=== PATIENT | female | born 1955 | race Caucasian/White ===

== ENCOUNTER 2016-09-20 08:37 | Emergency (ER) | payer BC ==
[~2016-09-20] VITALS: Ht 152.4 cm; Wt 89.9 kg
[~2016-09-20 08:37] MED LIST: ANAS1TAB19 PO; BUPR150T5 PO; CALC-323 PO; GLC/500 PO; IPRASOL34 INH; LEVO100T PO; OXYC-57 PO; WARF7.5T4 PO
[2016-09-20 08:41] VITALS: TEMP 36.6; Ht 152.4 cm; Wt 89.9 kg
[2016-09-20] MEDS ORDERED: ONDANSETRON INJ 2 MG/ML 2 ML VIAL IV STA (09:02)
[2016-09-20] MEDS ORDERED: HYDROmorphone INJ 0.5 MG/0.5 ML SYR IV STA ×2 (09:02→11:46)
[2016-09-20] MEDS ORDERED: SODIUM CHLORIDE 0.9% 1000ML 1,000 ML IV STA (09:02)
[2016-09-20 09:17] LABS: BASO % 0.5 %; BASO ABS # 0.03 K/uL (0-0.2); COMPLETE YES; EOS % 3.7 %; HEMATOCRIT 44.7 % (37-47); IG% 0.2 %; LYMPH % 33.2 %; LYMPH ABS # 2.08 K/uL (1.2-3.4); MEAN CORPUSCULAR HEMOGLOBIN 32.1 pg (25-34); MEAN CORPUSCULAR HGB CONC 34.9 g/dl (32-36); MEAN PLATELET VOLUME 9.6 fL (7.4-10.4); MONO % 8.3 %; NEUT % 54.1 %; PLATELET COUNT 237 K/uL (130-400); RED BLOOD COUNT 4.86 M/uL (4.2-5.4); WHITE BLOOD COUNT 6.27 K/uL (4.8-10.8)
[2016-09-20 09:24] LABS: URINE APPEARANCE CLEAR (CLEAR); URINE BILIRUBIN NEG (NEG); URINE COLOR YELLOW; URINE NITRITE NEG (NEG); UROBILINOGEN NEG (NEG); ZZUR CULT IF INDIC CLEAN CATCH NO
[2016-09-20] MEDS ORDERED: VNTHFA/IN INH (09:24)
[2016-09-20] MEDS ORDERED: WARF5TAB7 PO (09:24)
[2016-09-20] MEDS ORDERED: MULT-845 PO (09:24)
[2016-09-20] MEDS ORDERED: EPP3/2 IM (09:24)
[2016-09-20 09:29] LABS: MANUAL MICROSCOPIC REQUIRED? NO; REVIEW REQ? NO
[2016-09-20 09:36] LABS: BUN/CREATININE RATIO 9.5 (10-20); CALCIUM 9.5 mg/dl (8.5-10.1); CREATININE 0.82 mg/dl (0.60-1.20); POTASSIUM 3.7 mmol/L (3.5-5.1)
--- NOTE | 2016-09-20 09:39 | DIAGNOSTIC IMAGING REPORT ---
CT SCAN OF THE ABDOMEN AND PELVIS WITHOUT CONTRAST CLINICAL HISTORY: Right-sided abdominal pain, nausea, vomiting. COMPARISON STUDY: No previous studies for comparison. TECHNIQUE: CT scan of the abdomen and pelvis was performed from the lung bases to the proximal femurs. Images are reviewed in the axial, sagittal, and coronal planes. IV contrast was not administered for this examination. CT DOSE: 1197.52 mGy.cm FINDINGS: Lower chest: The heart is normal in size and configuration, without pericardial effusion. The lung bases and pleural spaces are clear. Liver: There is hepatic steatosis. No focal masses are visualized this noncontrast study. Gallbladder: Unremarkable. Spleen: Normal in size and attenuation. Pancreas: Unremarkable. Adrenal glands: Unremarkable. Kidneys: No renal, ureteral, or bladder calculi are visualized. Bowel: There are no transition zones indicate bowel obstruction. There is colonic diverticulosis. No acute peridiverticular inflammatory changes are visualized. The appendix is surgically absent. Peritoneum: There is no intraperitoneal free air or abdominal ascites. There is a tiny fat-containing umbilical hernia Vasculature: The abdominal aorta is normal in course and caliber. Adenopathy: None. Pelvic viscera: The uterus is surgically absent. No abnormal adnexal masses are visualized. Skeletal structures: No destructive osseous lesions are seen. IMPRESSION: 1. No renal, ureteral, or bladder calculi identified 2. No evidence of bowel obstruction. No evidence of free air 3. Diverticulosis. No evidence of acute diverticulitis 4. Hepatic steatosis Electronically signed by: Hollis Bass M.D. 09/20/2016 9:37 AM Dictated Date/Time: 09/20/2016 9:32 AM
--- NOTE | 2016-09-20 11:16 | DIAGNOSTIC IMAGING REPORT ---
BILIARY ULTRASOUND CLINICAL HISTORY: Right upper quadrant abdominal pain and nausea COMPARISON STUDY: CT scan dated 09/20/2016 FINDINGS: The pancreas appears normal as visualized. The liver is of increased echogenicity, consistent with hepatic steatosis. The gallbladder appears sonographically normal. There is no ductal dilatation. The common bile duct measures 5 mm. There is no right-sided hydronephrosis. IMPRESSION: Increased hepatic echogenicity, consistent with hepatic steatosis. Otherwise unremarkable biliary ultrasound Electronically signed by: Hollis Bass M.D. 09/20/2016 11:14 AM Dictated Date/Time: 09/20/2016 11:13 AM
[2016-09-20] MEDS ORDERED: HYDR-5688 PO (11:50)
[2016-09-20] MEDS ORDERED: ONDA4TAB10 SL (11:50)
--- NOTE | 2016-09-20 11:53 | EMERGENCY ROOM VISIT NOTE ---
History First contact with patient: 08:49 Chief Complaint: NAUSEA Stated Complaint: NAUSEA, VOMITING, RIGHT SIDED PAIN Nursing Triage Summary: Patient c/o n/v/d and right sided back and abdominal pain, began , got worse Monday night. hx kindey stones. Denies urinary symptoms. History of Present Illness The patient is a 61 year old female who presents to the Emergency Room with complaints of nausea, vomiting and right-sided abdominal pain. The patient reports that she has had nausea off and on for the past 5 days. She has had one episode of vomiting yesterday. She states that 2 days ago, she developed right-sided abdominal pain which radiates into the back. She states it is a dull, constant pain with intermittent sharp pains. She reports that she did have one episode of diarrhea yesterday, but otherwise her bowel movements have been normal. She rates her overall discomfort a 7.5/10. She does have a history of kidney stones but does not feel that this is similar. She has a history of appendectomy and hysterectomy. She denies any urinary symptoms. She denies any chest pain, shortness breath or blood in her bowel movements. Review of Systems A complete 10-point Review of Systems was discussed with the patient, with pertinent positives and negatives listed in the History of Present Illness. All remaining Review of Systems questions can be considered negative unless otherwise specified. Past Medical/Surgical History Medical Problems: (1) Asthma Social History Smoking Status: Never Smoker Marital Status: Housing Status: lives with family Occupation Status: employed Current/Historical Medications Scheduled Albuterol Hfa (Ventolin Hfa), 2-4 PUFFS INH Q6H Anastrozole (Arimidex), 1 MG PO DAILY Bupropion Hcl (Bupropion Hcl Xl), 150 MG PO DAILY Calcium Citrate-Vitamin D (Citracal Maximum), 1 TAB PO DAILY Epinephrine (Epipen), 0.3 MG IM UD Metformin Hcl (Glucophage), 500 MG PO BID Multiple Vitamins W/ Minerals (Centrum Silver Adult 50+), 1 TAB PO DAILY Ondasetron Odt (Zofran Odt), 4 MG SL Q6H Warfarin Sod (Jantoven), 7.5 MG PO UD Warfarin Sod (Jantoven), 5 MG PO UD Scheduled PRN Hydrocodone/Acetaminophen 5MG/325MG ([place] 5MG/325MG), 1-2 TABLET PO Q4H PRN for Pain Allergies Coded Allergies: Sumatriptan (Verified Allergy, Intermediate, chest pain, 09/20/16) Adhesives (Verified Allergy, Unknown, ., 09/20/16) BEE STING (Verified Allergy, Unknown, ., 09/20/16) Cephalexin (Verified Allergy, Unknown, ., 09/20/16) Penicillin V (Verified Allergy, Unknown, ., 09/20/16) Tetanus Toxoid (Verified Allergy, Unknown, ., 09/20/16) Morphine (Verified Adverse Reaction, Intermediate, nausea, vomiting., 09/20) Physical Exam Vital Signs Date Time Temp Pulse Resp B/P Pulse Ox O2 Delivery O2 Flow Rate FiO2 09/20/16 12:12 86 18 150/97 93 09/20/16 11:18 71 16 143/103 94 Room Air 09/20/16 09:55 63 18 155/106 97 Room Air 09/20/16 08:41 36.6 72 18 146/96 97 Room Air Pain Rating (0-10): 2.0 Physical Exam VITALS: Vitals are noted on the nurse's note and reviewed by myself. Vital signs stable. GENERAL: This is a 61-year-old female, in no acute distress, nondiaphoretic, well-developed well-nourished. SKIN: Capillary reflex less than 2 seconds. HEART: Regular rate and rhythm without murmurs gallops or rubs. LUNGS: Clear to auscultation bilaterally without wheezes, rales or rhonchi. ABDOMEN: Positive bowel sounds x 4. The abdomen is soft. There is minimal tenderness to palpation of the right mid to upper abdomen. Grace sign negative. No guarding or rebound tenderness. MUSCULOSKELETAL: No CVA tenderness. NEURO: Patient was alert and oriented to person place and time. Medical Decision & Procedures ER Provider Diagnostic Interpretation: CT SCAN OF THE ABDOMEN AND PELVIS WITHOUT CONTRAST IMPRESSION: 1. No renal, ureteral, or bladder calculi identified 2. No evidence of bowel obstruction. No evidence of free air 3. Diverticulosis. No evidence of acute diverticulitis 4. Hepatic steatosis BILIARY ULTRASOUND IMPRESSION: Increased hepatic echogenicity, consistent with hepatic steatosis. Otherwise unremarkable biliary ultrasound Laboratory Results 09/20/16 09:00 Red Blood Count 4.86, Mean Corpuscular Volume 92.0, Mean Corpuscular Hemoglobin 32.1, Mean Corpuscular Hemoglobin Concent 34.9, Mean Platelet Volume 9.6, Neutrophils (%) (Auto) 54.1, Lymphocytes (%) (Auto) 33.2, Monocytes (%) (Auto) 8.3, Eosinophils (%) (Auto) 3.7, Basophils (%) (Auto) 0.5, Neutrophils # (Auto) 3.40, Lymphocytes # (Auto) 2.08, Monocytes # (Auto) 0.52, Eosinophils # (Auto) 0.23, Basophils # (Auto) 0.03 09/20/16 09:00 Test 09/20/16 08:50 09/20/16 09:00 Urine Color YELLOW Urine Appearance CLEAR (CLEAR) Urine pH 5.0 (4.5-7.5) Urine Specific [place] 1.020 (1.000-1.030) Urine Protein NEG (NEG) Urine Glucose (UA) TRACE (NEG) Urine Ketones NEG (NEG) Urine Occult Blood TRACE (NEG) Urine Nitrite NEG (NEG) Urine Bilirubin NEG (NEG) Urine Urobilinogen NEG (NEG) Urine Leukocyte Esterase NEG (NEG) Urine WBC (Auto) 1-5 /hpf (0-5) Urine RBC (Auto) 0-4 /hpf (0-4) Urine Hyaline Casts (Auto) 1-5 /lpf (0-5) Urine Epithelial Cells (Auto) 5-10 /lpf (0-5) Urine Bacteria (Auto) NEG (NEG) White Blood Count 6.27 K/uL (4.8-10.8) Red Blood Count 4.86 M/uL (4.2-5.4) Hemoglobin 15.6 g/dL (12.0-16.0) Hematocrit 44.7 % (37-47) Mean Corpuscular Volume 92.0 fL (80-100) Mean Corpuscular Hemoglobin 32.1 pg (25-34) Mean Corpuscular Hemoglobin Concent 34.9 g/dl (32-36) Platelet Count 237 K/uL (130-400) Mean Platelet Volume 9.6 fL (7.4-10.4) Neutrophils (%) (Auto) 54.1 % Lymphocytes (%) (Auto) 33.2 % Monocytes (%) (Auto) 8.3 % Eosinophils (%) (Auto) 3.7 % Basophils (%) (Auto) 0.5 % Neutrophils # (Auto) 3.40 K/uL (1.4-6.5) Lymphocytes # (Auto) 2.08 K/uL (1.2-3.4) Monocytes # (Auto) 0.52 K/uL (0.11-0.59) Eosinophils # (Auto) 0.23 K/uL (0-0.5) Basophils # (Auto) 0.03 K/uL (0-0.2) RDW Standard Deviation 43.7 fL (36.4-46.3) RDW Coefficient of Variation 13.0 % (11.5-14.5) Immature Granulocyte % (Auto) 0.2 % Immature Granulocyte # (Auto) 0.01 K/uL (0.00-0.02) Anion Gap 11.0 mmol/L (3-11) Est Creatinine Clear Calc Drug Dose 71.0 ml/min Estimated GFR () 88.9 Estimated GFR (Non- 76.7 BUN/Creatinine Ratio 9.5 (10-20) Calcium Level 9.5 mg/dl (8.5-10.1) Total Bilirubin 0.3 mg/dl (0.2-1) Aspartate Amino Transf (AST/SGOT) 25 U/L (15-37) Alanine Aminotransferase (ALT/SGPT) 43 U/L (12-78) Alkaline Phosphatase 85 U/L (45-117) Total Protein 7.8 gm/dl (6.4-8.2) Albumin 3.8 gm/dl (3.4-5.0) Globulin 4.0 gm/dl (2.5-4.0) Albumin/Globulin Ratio 1.0 (0.9-2) Lipase 196 U/L (73-393) Medications Administered Medications (Trade) Dose Ordered Sig/Bob Route Start Time Stop Time Status Last Admin Dose Admin Sodium Chloride (Nss 1000ml) 1,000 ml @ 999 mls/hr Q1H1M STAT IV 09/20/16 09:02 09/20/16 10:02 DC 09/20/16 09:08 999 MLS/HR Hydromorphone HCl (Dilaudid Inj) 0.5 mg NOW STAT IV 09/20/16 09:02 09/20/16 09:04 DC 1/17/17 09:09 0.5 MG Ondansetron HCl (Zofran Inj) 4 mg NOW STAT IV 09/20/16 09:02 09/20/16 09:04 DC 09/20/16 09:09 4 MG Hydromorphone HCl (Dilaudid Inj) 0.5 mg NOW STAT IV 09/20/16 11:46 09/20/16 11:47 DC 09/20/16 11:50 0.5 MG Medical Decision Differential diagnosis includes pancreatitis, cholecystitis, biliary colic, renal colic, pyelonephritis, gastroenteritis, colitis, among others. The patient was evaluated as above. Labs were drawn and IV access was obtained. Imaging studies were performed and read by radiology as above. The patient was medicated with 0.5 mg Dilaudid 2. The patient was reassessed multiple times during their stay in the emergency department and remained in stable condition. The patient is a 61-year-old female who presents today complaining of right- sided abdominal pain. Labs revealed no leukocytosis, anemia or concerning electrolyte abnormalities. Kidney and liver functions were within normal limits. Urinalysis was not suggestive of infection. Initially, I ordered a CT of the abdomen and pelvis without contrast to rule out a renal calculus. There was no kidney stone identified. A right upper quadrant ultrasound was then performed which did not show any evidence of acute cholecystitis. There was trace blood in the urine, which could represent a recently passed kidney stone. The patient was much more comfortable after IV pain medication. She will be given a short course of pain medication and Zofran and will follow-up with her primary care provider/GI for further evaluation. She will return sooner for any new/worsening symptoms. Based on the patient's presentation, lab results, and imaging studies, I feel the patient is stable for outpatient treatment. The patient's case was reviewed with Dr. Yepez, ED attending physician, who agreed with my assessment and treatment plan. Discharge instructions were reviewed with the patient. The patient verbalized understanding of my assessment and treatment plan and was discharged home in good condition. [place] Drug Monitoring Program Search Results: patient reviewed within database, no issues identified Impression Primary Impression: Right sided abdominal pain Departure Information Dispostion Home / Self-Care Condition GOOD Prescriptions Ondasetron Odt (ZOFRAN ODT) 4 Mg Tab 4 MG SL Q6H for Nausea, #15 TAB Prov: Lavinia Nielsen .DOUG 09/20/16 Hydrocodone/Acetaminophen 5MG/325MG ([place] 5MG/325MG) Tab 1-2 TABLET PO Q4H Y for Pain, #24 TAB For Initial Treatment Prov: Lavinia Nielsen PA-C 09/20/16 Referrals Zachary Nelson Jr., M.D. (PCP) Klever Morales M.D. Patient Instructions My [facility] Additional Instructions You have been treated in the Emergency Department your Abdominal Pain. Laboratory results and imaging studies have ruled out any emergent causes for your abdominal pain which would warrant admission or surgery. You have been prescribed [place] to be used for pain control. This is a narcotic medication. You cannot drive or consume alcohol while on this medicine. This medicine should only be used for pain that cannot be controlled with over-the- counter pain medicines. You have been prescribed Zofran to be used for any nausea or vomiting. Take as prescribed. For pain control, you can use the following [id number] medicines (if >12 yo): - Regular strength (325mg/tab) Tylenol (acetaminophen) 2 tabs every 4-6 hours as needed. Do not exceed 12 tablets in a 24 hour period. Avoid taking more than 4 grams (4000 mg) of Tylenol per day. This includes any other sources of acetaminophen you may take on a regular basis. - Regular strength (200 mg/tab) Advil (ibuprofen) 1-2 tabs every 4-6 hours as needed. Do not exceed a dose of 3200 mg per day. Drink plenty of water and stay well hydrated. As with any trip to the Emergency Department, you should follow-up with your Primary Care Provider from today's visit. You have also been provided with the information for gastro-neurology. Call them to schedule a follow-up within 1-2 weeks. Return to the emergency department if your symptoms persist despite treatment plan outlined above or if the following symptoms occur: Worsening abdominal pain , worsening vomiting, fevers, or any other new/concerning symptoms.
[2016-09-20 12:12] VITALS: BP 150/97; PULSE 86; O2SAT 93
== END 2016-09-20 12:13 | disposition home or self-care (01) ==
LOC: C.EDB 08:38 → C.EDA 12:13
DX: R10.9 Unspecified abdominal pain (principal); J45.909 Unspecified asthma, uncomplicated; K57.90 Diverticulosis of intestine, part unspecified, without perforation or abscess without bleeding; K76.0 Fatty (change of) liver, not elsewhere classified

== ENCOUNTER 2017-04-14 15:58 | Inpatient (IN) | payer BC ==
[~2017-04-14] VITALS: Ht 154.9 cm; Wt 89.2 kg
[~2017-04-14 15:58] MED LIST changes: +EPP3/2 IM; -IPRASOL34 INH; -LEVO100T PO; +MULT-845 PO; -OXYC-57 PO; +VNTHFA/IN INH; +WARF5TAB7 PO
--- NOTE | 2017-04-14 16:45 | EMERGENCY ROOM VISIT NOTE ---
History First contact with patient: 16:43 Chief Complaint: MENTAL HEALTH EVALUATION Stated Complaint: MENTAL HEALTH ADMIT History of Present Illness The patient is a 61 year old female who presents to the Emergency Room with complaints of depression >10 years. Has been on Wellbutrin for ~7 years and depression has been relatively well controlled, prescribed by PCP, Dr. 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 However, this caused GI upset and nausea, so patient resumed previous dosing. In the last month, patient has begun developing suicidal thoughts. Sometimes the thoughts do not occur, sometimes the thoughts occur multiple times a day. She claims they are her own thoughts, and denies voices in head telling her to hurt herself. She denies any hallucinations. She states feeling fatigued and hopeless. The thoughts of suicide meant to be an escape. She has thoughts of using her 's Percocet pills to OD. She has not planned date or time or triggers which would push her to complete the act. 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 He says the pistols are no longer in the house. Has not had previous suicidal thoughts. No previous mental health admissions. Review of Systems See HPI for pertinent positives and negatives. A total of ten systems were reviewed and were otherwise negative. Past Medical/Surgical History Medical Problems: (1) Asthma (2) Depression Social History Smoking Status: Never Smoker Smokeless Tobacco Use: No Alcohol Use: none Drug Use: none Marital Status: Housing Status: lives with family Occupation Status: employed Current/Historical Medications Scheduled Albuterol Hfa (Ventolin Hfa), 2-4 PUFFS INH Q6H Anastrozole (Arimidex), 1 MG PO DAILY Bupropion (Wellbutrin Sr), 100 MG PO DAILY Calcium Citrate-Vitamin D (Citracal Maximum), 1 TAB PO BID Metformin Hcl (Glucophage), 500 MG PO BID Multiple Vitamins W/ Minerals (Centrum Silver Adult 50+), 1 TAB PO DAILY Warfarin Sod (Jantoven), 7.5 MG PO UD Warfarin Sod (Jantoven), 5 MG PO UD Physical Exam Vital Signs Date Time Temp Pulse Resp B/P (MAP) Pulse Ox O2 Delivery O2 Flow Rate FiO2 04/14/17 18:20 78 18 119/88 97 Room Air 04/14/17 16:09 36.8 88 18 143/92 96 Room Air Physical Exam GENERAL: Alert, sitting in bed, no acute distress, non-toxic HEAD: NC/AT. No sinus tenderness. EYES: PERRL, EOMI, normal conjunctiva OROPHARYNX: no exudate, no erythema, lips, buccal mucosa, and tongue normal and mucous membranes are dry NECK: Supple, no adenopathy, non-tender LUNGS: Clear to auscultation. Normal chest wall mechanics, good air entry. No crepitations, crackles, or wheezes HEART: no murmurs, S1 and S2 normal ABDOMEN: abdomen soft, non-tender, normo-active bowel sounds, no masses, no rebound or guarding. BACK: Back is symmetrical on inspection, no deformities, no midline tenderness, no CVA tenderness. SKIN: Warm, pink, dry. No erythema, rashes, or bruising. EXTREMITIES: Grossly normal. No pitting edema. Calves non tender. Strength 5/5 bilaterally. NEURO: Alert, Ox3. No focal deficits. Normal sensorium, cranial nerves II-XII grossly intact, normal speech. PSYCH: Mood and affect appropriate. Medical Decision & Procedures Laboratory Results 04/14/17 17:29 Red Blood Count 4.34, Mean Corpuscular Volume 93.8, Mean Corpuscular Hemoglobin 32.0, Mean Corpuscular Hemoglobin Concent 34.2, Mean Platelet Volume 9.4, Neutrophils (%) (Auto) 55.0, Lymphocytes (%) (Auto) 35.3, Monocytes (%) (Auto) 6.7, Eosinophils (%) (Auto) 2.3, Basophils (%) (Auto) 0.4, Neutrophils # (Auto) 4.28, Lymphocytes # (Auto) 2.75, Monocytes # (Auto) 0.52, Eosinophils # (Auto) 0.18, Basophils # (Auto) 0.03 04/14/17 17:29 Test 04/14/17 16:53 04/14/17 17:29 Urine Color YELLOW Urine Appearance CLEAR (CLEAR) Urine pH 5.0 (4.5-7.5) Urine Specific [place] 1.034 (1.000-1.030) Urine Protein NEG (NEG) Urine Glucose (UA) 3+ (NEG) Urine Ketones TRACE (NEG) Urine Occult Blood NEG (NEG) Urine Nitrite NEG (NEG) Urine Bilirubin NEG (NEG) Urine Urobilinogen NEG (NEG) Urine Leukocyte Esterase NEG (NEG) Urine Opiates Screen NEG (NEG) Urine Methadone, Qualitative NEG (NEG) Urine Barbiturates NEG (NEG) Urine Phencyclidine (PCP) Level NEG (NEG) Ur Amphetamine/Methamphetamine NEG (NEG) MDMA (Ecstasy) Screen POS (NEG) Urine Benzodiazepines Screen NEG (NEG) Urine Cocaine Metabolite NEG (NEG) Urine Marijuana (THC) NEG (NEG) White Blood Count 7.78 K/uL (4.8-10.8) Red Blood Count 4.34 M/uL (4.2-5.4) Hemoglobin 13.9 g/dL (12.0-16.0) Hematocrit 40.7 % (37-47) Mean Corpuscular Volume 93.8 fL (80-100) Mean Corpuscular Hemoglobin 32.0 pg (25-34) Mean Corpuscular Hemoglobin Concent 34.2 g/dl (32-36) Platelet Count 231 K/uL (130-400) Mean Platelet Volume 9.4 fL (7.4-10.4) Neutrophils (%) (Auto) 55.0 % Lymphocytes (%) (Auto) 35.3 % Monocytes (%) (Auto) 6.7 % Eosinophils (%) (Auto) 2.3 % Basophils (%) (Auto) 0.4 % Neutrophils # (Auto) 4.28 K/uL (1.4-6.5) Lymphocytes # (Auto) 2.75 K/uL (1.2-3.4) Monocytes # (Auto) 0.52 K/uL (0.11-0.59) Eosinophils # (Auto) 0.18 K/uL (0-0.5) Basophils # (Auto) 0.03 K/uL (0-0.2) RDW Standard Deviation 44.3 fL (36.4-46.3) RDW Coefficient of Variation 12.8 % (11.5-14.5) Immature Granulocyte % (Auto) 0.3 % Immature Granulocyte # (Auto) 0.02 K/uL (0.00-0.02) Anion Gap 8.0 mmol/L (3-11) Est Creatinine Clear Calc Drug Dose 53.9 ml/min Estimated GFR () 62.3 Estimated GFR (Non- 53.8 BUN/Creatinine Ratio 12.2 (10-20) Calcium Level 9.5 mg/dl (8.5-10.1) Total Bilirubin 0.1 mg/dl (0.2-1) Direct Bilirubin < 0.1 mg/dl (0-0.2) Aspartate Amino Transf (AST/SGOT) 24 U/L (15-37) Alanine Aminotransferase (ALT/SGPT) 46 U/L (12-78) Alkaline Phosphatase 70 U/L (45-117) Total Protein 7.0 gm/dl (6.4-8.2) Albumin 3.4 gm/dl (3.4-5.0) Thyroid Stimulating Hormone (TSH) 1.750 uIu/ml (0.300-4.500) Ethyl Alcohol mg/dL < 3.0 mg/dl (0-3) Medical Decision Prior records/ancillary studies reviewed. Triage Nursing notes reviewed. Additional history obtained from patient and . The patient's history was concerning for possible suicidal ideation. Differential diagnosis: Etiologies such as mood disorder, infection, hypoglycemia, electrolyte abnormalities, cardiac sources, intracerebral event, toxicologic, neurologic, as well as others were entertained. Physical examination: The physical examination was performed as above and was completely benign. No emergent medical pathologies were noted. Diagnostic interpretation by me: No diagnostic studies were performed based upon the history and physical examination. The labs revealed normal CBC, CMP, TSH, INR is subtherapeutic. UA consistent with dehydration. Negative drug tox screen except MDMA, which is known to cross react with Wellbutrin. Confirmatory test pending. Imaging studies: nil Consultation: By the evaluation outlined above emergent etiologies such as infection, hypoglycemia, electrolyte abnormalities, cardiac sources, intracerebral event, toxicologic, neurologic,as well as others were deemed relatively unlikely. It appears the patient is dealing with a psychiatric disturbance. The patient informed about the findings as listed above. All questions were answered. A consultation was placed with mental health. The patient was evaluated by mental health in the emergency department and they felt admission was warranted. The patient was admitted to [address] [place] [address] for further treatment. Impression Primary Impression: Suicidal ideation Additional Impression: Depression Departure Information Referrals Zachary Nelson Jr., M.D. (PCP) Patient Instructions My [facility] Resident Tracking Resident Involvement: Resident Care Provided Care Provided: Adult ED Problem Qualifiers
[2017-04-14] MEDS ORDERED: BUPR100T8 PO (17:47)
[2017-04-14 17:48] LABS: BENZODIAZEPINE, URINE NEG (NEG); COCAINE,URINE NEG (NEG); PHENCYCLIDINE, URINE NEG (NEG)
[2017-04-14 17:54] LABS: BASO % 0.4 %; BASO ABS # 0.03 K/uL (0-0.2); COMPLETE YES; EOS % 2.3 %; HEMATOCRIT 40.7 % (37-47); IG% 0.3 %; LYMPH % 35.3 %; LYMPH ABS # 2.75 K/uL (1.2-3.4); MEAN CELL VOLUME 93.8 fL (80-100); MEAN CORPUSCULAR HGB CONC 34.2 g/dl (32-36); MEAN PLATELET VOLUME 9.4 fL (7.4-10.4); MONO % 6.7 %; PLATELET COUNT 231 K/uL (130-400); RED BLOOD COUNT 4.34 M/uL (4.2-5.4); WHITE BLOOD COUNT 7.78 K/uL (4.8-10.8)
[2017-04-14 18:02] LABS: URINE APPEARANCE CLEAR (CLEAR); URINE BILIRUBIN NEG (NEG); URINE COLOR YELLOW; URINE NITRITE NEG (NEG); URINE SPECIFIC GRAVITY 1.034 (1.000-1.030); UROBILINOGEN NEG (NEG)
[2017-04-14 18:03] LABS: MANUAL MICROSCOPIC REQUIRED? NO; REVIEW REQ? NO
[2017-04-14 18:11] LABS: ALT/SGPT 46 U/L (12-78); BLOOD UREA NITROGEN 13 mg/dl (7-18); BUN/CREATININE RATIO 12.2 (10-20); CALCIUM 9.5 mg/dl (8.5-10.1); CARBON DIOXIDE 26 mmol/L (21-32); CHLORIDE 107 mmol/L (98-107); GLUCOSE 208 mg/dl (70-99); POTASSIUM 3.7 mmol/L (3.5-5.1); SODIUM 141 mmol/L (136-145)
[2017-04-14 18:20] VITALS: O2SAT 97
[2017-04-14 18:21] LABS: ALKALINE PHOSPHATASE 70 U/L (45-117); AST/SGOT 24 U/L (15-37)
[2017-04-14] MEDS ORDERED: BISMUTH SUBSALICYLATE PER ML OMNICELL CHARGE PO PRN (18:45)
[2017-04-14] MEDS ORDERED: ALBUTEROL HFA 8 GM INHALER INH SCH (18:45)
[2017-04-14] MEDS ORDERED: SODIUM CHLORIDE 0.65% NA SOLN 45 ML (OCEAN) PRN (18:45)
[2017-04-14] MEDS ORDERED: MAGNESIUM HYDROXIDE SUSP 30 ML UDC PO PRN (18:45)
[2017-04-14] MEDS ORDERED: hydrOXYzine HCL 25 MG TAB PO PRN ×2 (18:45)
[2017-04-14] MEDS ORDERED: ALUMINUM/MAGNESIUM SUSP 30 ML UDC PO PRN (18:45)
--- NOTE | 2017-04-14 19:48 | EMERGENCY ROOM VISIT NOTE ---
History Report prepared by Elina: Gregg Marion Under the Supervision of: Dr. Bernardino Damon D.O. First contact with patient: 16:41 Chief Complaint: MENTAL HEALTH EVALUATION Stated Complaint: MENTAL HEALTH ADMIT History of Present Illness The patient is a 61 year old female who presents to the Emergency Room for a mental health evaluation. She has had a history of Depression for the past 10 years. She has been on Wellbutrin for that time. Beginning 1 month ago, the patient's depression has been worsening. 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 She has been having thoughts of suicide. She had plans to take her 's Percocet pills. She denies any hallucinations or hearing voices. She feels hopeless and has a lack of self-worth, but she would like to get better. She denies any previous attempts of suicide and no prior mental health admissions. She has been having headaches, but nothing out of the ordinary. She denies any other abnormal symptoms. Source of History: patient Onset: 1 month ago Position: other (Global) Symptom Intensity: moderate Quality: other (Depression) Timing: worsening Associated Symptoms: + headache Note: She denies any hallucinations or hearing voices. She has a suicidal ideation. Review of Systems See HPI for pertinent positives & negatives. A total of 10 systems reviewed and were otherwise negative. Past Medical & Surgical Medical Problems: (1) Asthma (2) Depression Family History Omitted secondary to age. Social History Smoking Status: Never Smoker Smokeless Tobacco Use: No Drug Use: none Marital Status: Housing Status: lives with family Occupation Status: employed Current/Historical Medications Scheduled Albuterol Hfa (Ventolin Hfa), 2-4 PUFFS INH Q6H Anastrozole (Arimidex), 1 MG PO DAILY Bupropion (Wellbutrin Sr), 100 MG PO DAILY Calcium Citrate-Vitamin D (Citracal Maximum), 1 TAB PO BID Metformin Hcl (Glucophage), 500 MG PO BID Multiple Vitamins W/ Minerals (Centrum Silver Adult 50+), 1 TAB PO DAILY Warfarin Sod (Jantoven), 7.5 MG PO UD Warfarin Sod (Jantoven), 5 MG PO UD Allergies Coded Allergies: Sumatriptan (Verified Allergy, Intermediate, chest pain, 04/14/17) Adhesives (Verified Allergy, Unknown, ., 04/14/17) BEE STING (Verified Allergy, Unknown, ., 04/14/17) Cephalexin (Verified Allergy, Unknown, ., 04/14/17) Penicillin V (Verified Allergy, Unknown, ., 04/14/17) Tetanus Toxoid (Verified Allergy, Unknown, ., 04/14/17) Morphine (Verified Adverse Reaction, Intermediate, nausea, vomiting., 04/14) Physical Exam Vital Signs Date Time Temp Pulse Resp B/P (MAP) Pulse Ox O2 Delivery O2 Flow Rate FiO2 04/14/17 18:20 78 18 119/88 97 Room Air 04/14/17 16:09 36.8 88 18 143/92 96 Room Air Physical Exam GENERAL: alert, disheveled appearing, well nourished, no distress, non-toxic, lying on her left side. EYE EXAM: normal conjunctiva, PERRL and EOM's intact OROPHARYNX: no exudate, no erythema, lips, buccal mucosa, and tongue normal and mucous membranes are moist NECK: supple, no nuchal rigidity, no adenopathy, non-tender LUNGS: Clear to auscultation. Normal chest wall mechanics HEART: no murmurs, S1 normal and S2 normal ABDOMEN: abdomen soft, non-tender, normo-active bowel sounds, no masses, no rebound or guarding. BACK: Back is symmetrical on inspection and there is no deformity, no midline tenderness, no CVA tenderness. SKIN: no rashes and no bruising UPPER EXTREMITIES: upper extremities are grossly normal. LOWER EXTREMITIES: No pitting edema. NEURO EXAM: Normal sensorium, cranial nerves II-XII intact, normal speech, no weakness of arms, no weakness of legs. No drift. Sensation intact. PSYCH EXAM: Denies auditory or visual hallucinations. Admits to suicidal thoughts with plans to kill herself. Denies homicidal ideation. Admits lack of self worth. Flat affect. Medical Decision & Procedures Laboratory Results 04/14/17 17:29 Red Blood Count 4.34, Mean Corpuscular Volume 93.8, Mean Corpuscular Hemoglobin 32.0, Mean Corpuscular Hemoglobin Concent 34.2, Mean Platelet Volume 9.4, Neutrophils (%) (Auto) 55.0, Lymphocytes (%) (Auto) 35.3, Monocytes (%) (Auto) 6.7, Eosinophils (%) (Auto) 2.3, Basophils (%) (Auto) 0.4, Neutrophils # (Auto) 4.28, Lymphocytes # (Auto) 2.75, Monocytes # (Auto) 0.52, Eosinophils # (Auto) 0.18, Basophils # (Auto) 0.03 04/14/17 17:29 Test 04/14/17 16:53 04/14/17 17:29 Urine Color YELLOW Urine Appearance CLEAR (CLEAR) Urine pH 5.0 (4.5-7.5) Urine Specific Hobson 1.034 (1.000-1.030) Urine Protein NEG (NEG) Urine Glucose (UA) 3+ (NEG) Urine Ketones TRACE (NEG) Urine Occult Blood NEG (NEG) Urine Nitrite NEG (NEG) Urine Bilirubin NEG (NEG) Urine Urobilinogen NEG (NEG) Urine Leukocyte Esterase NEG (NEG) Urine Opiates Screen NEG (NEG) Urine Methadone, Qualitative NEG (NEG) Urine Barbiturates NEG (NEG) Urine Phencyclidine (PCP) Level NEG (NEG) Ur Amphetamine/Methamphetamine NEG (NEG) MDMA (Ecstasy) Screen POS (NEG) Urine Benzodiazepines Screen NEG (NEG) Urine Cocaine Metabolite NEG (NEG) Urine Marijuana (THC) NEG (NEG) White Blood Count 7.78 K/uL (4.8-10.8) Red Blood Count 4.34 M/uL (4.2-5.4) Hemoglobin 13.9 g/dL (12.0-16.0) Hematocrit 40.7 % (37-47) Mean Corpuscular Volume 93.8 fL (80-100) Mean Corpuscular Hemoglobin 32.0 pg (25-34) Mean Corpuscular Hemoglobin Concent 34.2 g/dl (32-36) Platelet Count 231 K/uL (130-400) Mean Platelet Volume 9.4 fL (7.4-10.4) Neutrophils (%) (Auto) 55.0 % Lymphocytes (%) (Auto) 35.3 % Monocytes (%) (Auto) 6.7 % Eosinophils (%) (Auto) 2.3 % Basophils (%) (Auto) 0.4 % Neutrophils # (Auto) 4.28 K/uL (1.4-6.5) Lymphocytes # (Auto) 2.75 K/uL (1.2-3.4) Monocytes # (Auto) 0.52 K/uL (0.11-0.59) Eosinophils # (Auto) 0.18 K/uL (0-0.5) Basophils # (Auto) 0.03 K/uL (0-0.2) RDW Standard Deviation 44.3 fL (36.4-46.3) RDW Coefficient of Variation 12.8 % (11.5-14.5) Immature Granulocyte % (Auto) 0.3 % Immature Granulocyte # (Auto) 0.02 K/uL (0.00-0.02) Anion Gap 8.0 mmol/L (3-11) Est Creatinine Clear Calc Drug Dose 53.9 ml/min Estimated GFR () 62.3 Estimated GFR (Non- 53.8 BUN/Creatinine Ratio 12.2 (10-20) Calcium Level 9.5 mg/dl (8.5-10.1) Total Bilirubin 0.1 mg/dl (0.2-1) Direct Bilirubin < 0.1 mg/dl (0-0.2) Aspartate Amino Transf (AST/SGOT) 24 U/L (15-37) Alanine Aminotransferase (ALT/SGPT) 46 U/L (12-78) Alkaline Phosphatase 70 U/L (45-117) Total Protein 7.0 gm/dl (6.4-8.2) Albumin 3.4 gm/dl (3.4-5.0) Thyroid Stimulating Hormone (TSH) 1.750 uIu/ml (0.300-4.500) Ethyl Alcohol mg/dL < 3.0 mg/dl (0-3) Laboratory results per my review. ED Course ED COURSE: Vital signs were reviewed and showed hypertension. The patients medical record was reviewed The above diagnostic studies were performed and reviewed. ED treatments and interventions as stated above. 1641: The patient was evaluated in room A6. A complete history and physical examination was performed. 1800: The patient was evaluated by [address] [place] [address] and was accepted to their facility for further treatment as an inpatient. 1815: Upon reevaluation, the patient is resting. I discussed my findings with the patient and she understands and agrees with the treatment plan. Based on the patients age, coexisting illnesses, exam and lab findings the decision to treat as an inpatient was made. The patient remained stable while under my care. She will be transferred to [address] [place] [address]. Medical Decision Differential diagnosis: Etiologies such as mood disorder, infection, hypoglycemia, electrolyte abnormalities, cardiac sources, intracerebral event, toxicologic, neurologic, as well as others were entertained. Patient is a 59-year-old female who presents the ER with depression and thoughts of suicide. She has a plan of overdosing. This has been worsening over the past month. Patient combines of a mild headache. She complete neurologically intact. No other medical complaints. Labs were unremarkable with mild hyperglycemia consistent with her diabetes. Patient was deemed medically stable and evaluated by [facility] Patient was admitted to [facility] for suicidal thoughts with a plan to overdose. Medication Reconcilliation Current Medication List: was personally reviewed by me Blood Pressure Screening Patient's blood pressure: Elevated blood pressure Blood pressure disposition: Elevated BP felt to be situational Impression Primary Impression: Mood disorder Additional Impression: Suicidal ideation Scribe Attestation The scribe's documentation has been prepared under my direction and personally reviewed by me in its entirety. I confirm that the note above accurately reflects all work, treatment, procedures, and medical decision making performed by me. Departure Information Dispostion Mental Health Acute Care Referrals Zachary Nelson Jr., M.D. (PCP) Patient Instructions [facility] Problem Qualifiers
[2017-04-14 19:55] VITALS: BP 143/89; PULSE 88; TEMP 36.8; BMI 37.2
[2017-04-14 21:18] LABS: INR 1.2 (0.9-1.1); PROTHROMBIN TIME (PATIENT) 12.6 SECONDS (9.0-12.0)
[2017-04-14] MEDS ORDERED: NURSING VERBAL MED ORDER ONE (21:30)
[2017-04-14] MEDS ORDERED: ALBUTEROL HFA 8 GM INHALER INH PRN (21:45)
[2017-04-14] MEDS: CALCIUM 600MG + VIT D 400 IU TAB PO SCH (22:10)
[2017-04-14] MEDS: WARFARIN SOD 7.5 MG TAB PO SCH (22:10)
[2017-04-14] MEDS: METFORMIN HCL 500 MG TAB PO SCH (22:11)
[2017-04-15 06:57] VITALS: Ht 154.9 cm; Wt 89.2 kg
[2017-04-15 06:58] VITALS: BP_SYST 139; BP_SYST 147; BP_DIAS 90; BP_DIAS 97; PULSE 63; PULSE 76; TEMP 36.7
--- NOTE | 2017-04-15 08:56 | Psychiatric History & Physical ---
History Date of Service Apr 15, 2017. Identifying Data Donna Bryan is a 61-year-old female from [facility], who was admitted voluntarily due to severe depression and suicidality. Information is gathered from the patient and considered to be reliable. Chief Complaint "I been really depressed lately.". History of Present Illness Flaquita Bryan is a 61-year-old woman who is not currently in any psychiatric outpatient care, who reports that she has been increasingly depressed for the last 2 months. She first experienced depression about 10 years ago when her uncle and she was unable to be with him at the time of his . She did have therapy at that time which she felt was helpful. She has also been on Wellbutrin from her primary care provider for years. He did recently try to increase the dose which she could not tolerate due to nausea and stomach cramps. She has been under stress at home, as her has been having increasing medical problems including having symptomatic PVCs with shortness of breath and significant rectal pain. 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 She has not worked overnight caregiver in years and she has been doing so for the last 9 months, and finding it a difficult transition. Last Monday, she had a performance evaluation and was surprised to find that they were not satisfied with her performance. She was shocked by this as she feels that she doesn't good job, works hard and is conscientious. She did not feel as if the director's of nursing who gave her her review was professional nor did she have specific examples to support the poor review. Since that time, the patient has had increasing suicidal thoughts. She has had thoughts to overdose on her 's Percocet. Although she owns a gun, she denies she would ever use a gun on herself. Today the patient is quite tearful describing that she feels she is "letting everybody down" by being in the hospital. She sees her most acute stress as that of her poor work evaluation and would like to challenge that in some way. Her sleep has been "a lot" and feels that she is always tired. Her appetite is "too good" as she stress eats, however her weight has been fluctuant. Her anxiety is "a lot" and usually triggered by work. She feels that she has episodes of increased anxiety but denies that these rise to the level of a panic attack. She denies ever having had auditory or visual hallucinations. Her energy is quite low and she no longer enjoys things that she previously did such as going to camp or walking. She is isolating socially, not wanting to be around people. She denies any symptoms of OCD. She denies any discrete episodes of euphoric mood, sleeplessness or pleasure seeking behaviors that would be congruent with a bipolar disorder. She denies any self-injurious acts. Past Psychiatric History Current OP Treatment: no current treatment Prior OP Treatment: therapist Prior Psych Hospitalizations: none Access to a Gun: Yes Past Medication Trials Prozac-didn't work Past Medical/Surgical History History of Concussion/Seizure: No (1) history of a blood clot on chronic anticoagulation (2) History of breast cancer (3) Migraines (4) Diabetes mellitus type 2, noninsulin dependent (5) Hypothyroidism (6) Asthma Allergies Allergies: Coded Allergies: Sumatriptan (Verified Allergy, Intermediate, chest pain, 04/14/17) Adhesives (Verified Allergy, Unknown, ., 04/14/17) BEE STING (Verified Allergy, Unknown, ., 04/14/17) Cephalexin (Verified Allergy, Unknown, ., 04/14/17) Penicillin V (Verified Allergy, Unknown, ., 04/14/17) Tetanus Toxoid (Verified Allergy, Unknown, ., 04/14/17) Morphine (Verified Adverse Reaction, Intermediate, nausea, vomiting., 04/14) Home Medications Scheduled Albuterol Hfa (Ventolin Hfa), 2-4 PUFFS INH Q6H Anastrozole (Arimidex), 1 MG PO DAILY Bupropion (Wellbutrin Sr), 100 MG PO DAILY Calcium Citrate-Vitamin D (Citracal Maximum), 1 TAB PO BID Metformin Hcl (Glucophage), 500 MG PO BID Multiple Vitamins W/ Minerals (Centrum Silver Adult 50+), 1 TAB PO DAILY Warfarin Sod (Jantoven), 7.5 MG PO UD Warfarin Sod (Jantoven), 5 MG PO UD Family History FH: cardiovascular disease FH: diabetes mellitus History of Suicide: No History of Substance Abuse: No Psychiatric History: No Alcohol Use Alcohol Use In Past 12 Months: No AUDIT Total Score: 0 Smoking Use Smoking Status: Never Smoker Substance History Denies Personal History Lives in: [place] Education: graduated college (got a degree in nursing from [employer] in 1999) Work History: Employed full-time at [employer] Relationship History: (for 42 years, good relationship) Children: 2 adult sons Spiritual Affiliation: Mosque Legal History: none Psychological Trauma History: Denies Hx Traumatic Event Review of Systems Constitutional: malaise Eyes: reports: blurred vision (with migraines) ENT: denies: no symptoms reported, see HPI, ear pain, ear discharge, loss of hearing, tinnitus, nasal pain, nasal congestion, rhinorrhea, epistaxis, sore throat, stidor, throat swelling, mouth pain, mouth swelling, dental pain, gum swelling, other Cardiovascular: denies: no symptoms reported, see HPI, chest pain, chest tightness, chest pressure, diaphoresis, palpitations, syncope, other Respiratory: denies: no symptoms reported, see HPI, cough, orthopnea, short of breath, stridor, wheezing, sputum production, cyanosis, MEADE, PND, other Gastrointestinal: denies no symptoms reported, denies see HPI, denies abdominal pain, denies constipation, denies diarrhea, denies nausea, denies vomiting, denies other Genitourinary - Female: denies: no symptoms, see HPI, rash, amenorrhea, dysmenorrhea, menorrhagia, metrorrhagia, , vaginal bleeding, vaginal itching, vaginal discharge, vulvadynia, other Musculoskeletal: denies no symptoms reported, denies see HPI, denies back pain , denies gout, denies joint pain, denies joint swelling, denies muscle pain, denies muscle stiffness, denies neck pain, denies other Integumentary: denies no symptoms reported, denies see HPI, denies change in color, denies change in hair/nails, denies dryness, denies lesions, denies lumps , denies rash, denies other Neurologic: denies: no symptoms, see HPI, headache, numbness, paresthesias, pre -existing deficit, seizure, tingling, tremors, general weakness, tics, focal weakness, vertigo, lethargy, memory loss, dizziness, other Endocrine: denies: no symptoms, as stated in HPI, cold intolerance, heat intolerance, hair changes, goiter, polydipsia, polyuria, skin changes, other Hematologic / Lymphatic: denies: no symptoms, as stated in HPI, abnormal clotting, adenopathy, anemia, easy bleeding, easy bruising, gums bleeding, petechiae, other Examination Physical Examination A physical exam performed by Dr. Damon in the emergency department last evening has been reviewed and accepted as medical clearance for our unit Vital Signs Vital Signs Past 12 Hours Date Time Temp Pulse Resp B/P (MAP) Pulse Ox O2 Delivery O2 Flow Rate FiO2 04/15/17 06:58 36.7 63 16 139/90 76 147/97 Laboratory Results Last 24 Hours Test 04/14/17 16:53 04/14/17 17:29 04/14/17 20:51 Urine Color YELLOW Urine Appearance CLEAR Urine pH 5.0 Urine Specific Marshall 1.034 Urine Protein NEG Urine Glucose (UA) 3+ Urine Ketones TRACE Urine Occult Blood NEG Urine Nitrite NEG Urine Bilirubin NEG Urine Urobilinogen NEG Urine Leukocyte Esterase NEG Urine Opiates Screen NEG Urine Methadone, Qualitative NEG Urine Barbiturates NEG Urine Phencyclidine (PCP) Level NEG Ur Amphetamine/Methamphetamine NEG MDMA (Ecstasy) Screen POS Urine Benzodiazepines Screen NEG Urine Cocaine Metabolite NEG Urine Marijuana (THC) NEG White Blood Count 7.78 K/uL Red Blood Count 4.34 M/uL Hemoglobin 13.9 g/dL Hematocrit 40.7 % Mean Corpuscular Volume 93.8 fL Mean Corpuscular Hemoglobin 32.0 pg Mean Corpuscular Hemoglobin Concent 34.2 g/dl Platelet Count 231 K/uL Mean Platelet Volume 9.4 fL Neutrophils (%) (Auto) 55.0 % Lymphocytes (%) (Auto) 35.3 % Monocytes (%) (Auto) 6.7 % Eosinophils (%) (Auto) 2.3 % Basophils (%) (Auto) 0.4 % Neutrophils # (Auto) 4.28 K/uL Lymphocytes # (Auto) 2.75 K/uL Monocytes # (Auto) 0.52 K/uL Eosinophils # (Auto) 0.18 K/uL Basophils # (Auto) 0.03 K/uL RDW Standard Deviation 44.3 fL RDW Coefficient of Variation 12.8 % Immature Granulocyte % (Auto) 0.3 % Immature Granulocyte # (Auto) 0.02 K/uL Sodium Level 141 mmol/L Potassium Level 3.7 mmol/L Chloride Level 107 mmol/L Carbon Dioxide Level 26 mmol/L Anion Gap 8.0 mmol/L Blood Urea Nitrogen 13 mg/dl Creatinine 1.10 mg/dl Est Creatinine Clear Calc Drug Dose 53.9 ml/min Estimated GFR () 62.3 Estimated GFR (Non- 53.8 BUN/Creatinine Ratio 12.2 Random Glucose 208 mg/dl Calcium Level 9.5 mg/dl Total Bilirubin 0.1 mg/dl Direct Bilirubin < 0.1 mg/dl Aspartate Amino Transf (AST/SGOT) 24 U/L Alanine Aminotransferase (ALT/SGPT) 46 U/L Alkaline Phosphatase 70 U/L Total Protein 7.0 gm/dl Albumin 3.4 gm/dl Thyroid Stimulating Hormone (TSH) 1.750 uIu/ml Ethyl Alcohol mg/dL < 3.0 mg/dl Prothrombin Time 12.6 SECONDS Prothromb Time International Ratio 1.2 Mental Examination During interview pt is: alert and oriented, cooperative Appearance: appropriately dressed, appropriately groomed Eye contact is: good Motor behavior is: steady gait & station, no abnormal motor movements Speech: normal in rate, rhythm & volume Affect: tearful Mood is: depressed Thought process: goal directed Thought content: reality based without delusions Suicidal thought are: present, Plan: present, Intent: denied Homicidal thoughts are: denied Hallucinations: denies auditory, denies visual Cognition: memory grossly intact, attention grossly intact, language grossly intact Intelligence estimated to be: average Insight: impaired Judgement: impaired Impression / Recommendations Impression 61-year-old woman who presents with severe depression and suicidality in the setting of stress with her 's medical conditions and at her work. Her PCP has tried her on higher doses of Wellbutrin, which she cannot tolerate, and so we will add Lexapro 5-10 mg daily. Risks, benefits, alternatives, reviewed and accepted. 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 She will need psychiatric aftercare and will benefit from having a therapist. She had a random glucose of 208 and so we will get a fasting glucose in the a.m. We will monitor her PT INRs daily as she has been running low lately and has a goal range of 2-3. We will schedule a family meeting with her . At this time however she requires inpatient mental health treatment due to the severity of her condition and the risk for self-harm if discharged. Inventory Assets Strengths: Love of family, employed full-time, conscientious Needs: To learn healthy coping strategies Risk Factors Assessment : Yes /single/: No Higher / Fall in social status: No Access to guns: Yes Health problems: Yes Mental Health Diagnoses: Yes Substance use disorders: No Previous attempt: No Previous psychiatric stay: No Hopelessness: No Smoker: No Protective Factors Assessment Hoahaoism beliefs: Yes : Yes Responsible for young children: No Employed: Yes Stable relationships: Yes Supportive family: Yes Recommendations (1) Major depressive disorder, recurrent severe without psychotic features 04/15 -Start Lexapro 5 mg today increasing to 10 mg tomorrow - Continue Wellbutrin SR 100 mg daily - Family meeting with - Encourage participation in group and individual counseling - Every 15 minute checks for safety - Patient will need psychiatric aftercare - Patient seems willing to have a 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 she says that she recently had a hemoglobin A1c but cannot remember the value - Diabetic diet - Encourage exercise - Continue home dose of metformin (4) Hypothyroidism 04/15 -TSH within normal limits. Continue home dose of levothyroxine (5) Asthma 04/15 - Continue albuterol inhaler when necessary - (6) history of a blood clot on chronic anticoagulation 04/15 - Continue home dosing of Coumadin - Daily PT INRs with a goal range of 2-[address] Felipa arreguin CPT Code Initial Hospital Care: [id number]
[2017-04-15] MEDS ORDERED: LEVOTHYROXINE 150 MCG TAB PO ONE (09:45)
[2017-04-15] MEDS ORDERED: ESCITALOPRAM OXALATE 10 MG TAB PO ONE (09:45)
[2017-04-15] MEDS: ANASTROZOLE 1 MG TAB PO SCH (09:46)
[2017-04-15] MEDS: CALCIUM 600MG + VIT D 400 IU TAB PO SCH ×2 (09:47→22:04)
[2017-04-15] MEDS: METFORMIN HCL 500 MG TAB PO SCH ×2 (09:47→17:46)
[2017-04-15] MEDS: BuPROPion SR 100 MG TABCR PO SCH (09:47)
[2017-04-15] MEDS: CEROVITE ADV FORMULA TAB PO SCH (09:47)
[2017-04-15] MEDS ORDERED: LEVO150T PO (10:02)
--- NOTE | 2017-04-15 10:06 | Psych Management Progress Note ---
Psychiatry Miscellaneous Date of Service: Apr 15, 2017. I personally participated in the case review and medical recommendations outlined in the psychiatric H&P documented by AMARIS Chamorro. Patient seen, MS assessed. Hopeful for support of copatients. Described reading as a pleasurable activity. Cooperative with care and treatment plan as outlined by AMARIS. Encouraged participation in therapeutic activities.
[2017-04-15] MEDS: WARFARIN SOD 5 MG TAB PO SCH (16:05)
[2017-04-15 16:15] VITALS: BP 149/101; PULSE 74
[2017-04-15] MEDS: ACETAMINOPHEN 325 MG TAB PO PRN (17:49)
[2017-04-15 17:53] VITALS: BP 137/90; PULSE 87
[2017-04-16 07:04] VITALS: BP_SYST 123; BP_SYST 129; BP_DIAS 85; BP_DIAS 86; PULSE 73; PULSE 77; TEMP 36.6
[2017-04-16] MEDS: LEVOTHYROXINE 150 MCG TAB PO SCH (08:01)
[2017-04-16] MEDS: ANASTROZOLE 1 MG TAB PO SCH (09:10)
[2017-04-16] MEDS: BuPROPion SR 100 MG TABCR PO SCH (09:11)
[2017-04-16] MEDS: ESCITALOPRAM OXALATE 10 MG TAB PO SCH (09:11)
[2017-04-16] MEDS: CALCIUM 600MG + VIT D 400 IU TAB PO SCH ×2 (09:11→22:37)
[2017-04-16] MEDS: CEROVITE ADV FORMULA TAB PO SCH (09:11)
[2017-04-16] MEDS: METFORMIN HCL 500 MG TAB PO SCH ×2 (09:11→17:39)
--- NOTE | 2017-04-16 10:43 | Psychiatric Progress Notes ---
Progress Note Date of Service Apr 16, 2017. Interval History 61-year-old woman who presents with severe depression and suicidality in the setting of stress with her 's medical conditions and at her work. Her PCP has tried her on higher doses of Wellbutrin, which she cannot tolerate, and so we will add Lexapro 5-10 mg daily. Risks, benefits, alternatives, reviewed and accepted. 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 She will need psychiatric aftercare and will benefit from having a therapist. She had a random glucose of 208 and so we will get a fasting glucose in the a.m. We will monitor her PT INRs daily as she has been running low lately and has a goal range of 2-3. We will schedule a family meeting with her . At this time however she requires inpatient mental health treatment due to the severity of her condition and the risk for self-harm if discharged. Chief Complaint "I think I feel a little better.". Subjective Patient was seen & assessed interval progress reviewed with Treatment Team. The patient says that she had a good individual session with staff last evening and is now feeling better about things. She is still concerned about her work situation and is afraid that she will not be ready to return to work when discharged. She is backing off on wanting to have a phone meeting with her boss , fearing it would make things worse. She had good visits with her and her son last evening. She feels well supported by them. She had an episode of dizziness yesterday and had an elevated BP reading, and is worried about that. With her improved mood today she is also denying SI and feeling more hopeful. She reports good sleep and appetite, and is getting along well with her peers. She continues to have poor focus and recall, worrying that she will get dementia. 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.) Review of Systems Constitutional: No fever, No chills, No sweats, No weight loss, No weakness, No fatigue, No problem reported ENT: No hearing loss, No unusual epistaxis, No nasal symptoms, No sore throat, No tinnitus, No dental problems, No trouble swallowing, No problem reported Respiratory: No cough, No sputum, No wheezing, No shortness of breath, No dyspnea on exertion, No dyspnea at rest, No hemoptysis, No problem reported Cardiovascular: + problem reported (one episode of dizziness) Abdomen: No pain, No nausea, No vomiting, No diarrhea, No constipation, No GI bleeding, No problem reported Musculoskeletal: No joint pain, No muscle pain, No swelling, No calf pain, No problem reported Neurologic: No memory loss, No paralysis, No weakness, No numbness/tingling, No vertigo, No balance problems, No problem reported Psychiatric: + depression symptoms, + anxiety Sleep Information Total Hours of Sleep: 7.25 Meal Information Percent of Breakfast Consumed: 100 Percent of Lunch Consumed: 100 Percent of Dinner Consumed: 100 Mental Status Exam During interview pt is: alert and oriented, cooperative Appearance: appropriately dressed, appropriately groomed Eye contact is: good Motor behavior is: steady gait & station, no abnormal motor movements Speech: normal in rate, rhythm & volume Affect: tearful Mood is: depressed Thought process: goal directed Thought content: reality based without delusions Suicidal thought are: present, Plan: present, Intent: denied Homicidal thoughts are: denied Hallucinations: denies auditory, denies visual Cognition: memory grossly intact, attention grossly intact, language grossly intact Intelligence estimated to be: average Insight: impaired Judgement: impaired Impression Adjusting well to the structure and support of the milieu, utilizing individual as well as group therapy. Tolerating the start of Lexapro, will continue 10 mg. daily. FBS today 140, reviewed with patient. She is aware of what she needs to do to improve her sugars. She continues to consider her meeting options, which will be discussed with social service tomorrow. 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 she says that she recently had a hemoglobin A1c but cannot remember the value - Diabetic diet - Encourage exercise - Continue home dose of metformin (4) Hypothyroidism 04/15 -TSH within normal limits. Continue home dose of levothyroxine (5) Asthma 04/15 - Continue albuterol inhaler when necessary - (6) history of a blood clot on chronic anticoagulation 04/15 - Continue home dosing of Coumadin - Daily PT INRs with a goal range of 2-3 Has been reviewed with Dr. Felipa arreguin Discharge / Aftercare Planning Therapist: Name: Floridalma [employer] Strengths: Love of family, employed full-time, conscientious Needs: To learn healthy coping strategies Risk Factors Assessment : Yes /single/: No Higher / Fall in social status: No Health problems: Yes Mental Health Diagnoses: Yes Substance use disorders: No Previous attempt: No Previous psychiatric stay: No Hopelessness: No Smoker: No Protective Factors Assessment Samaritan beliefs: Yes : Yes Responsible for young children: No Employed: Yes Stable relationships: Yes Supportive family: Yes Data Vital Signs Last 24 Hrs: Date Time Temp Pulse Resp B/P (MAP) Pulse Ox O2 Delivery O2 Flow Rate FiO2 04/16/17 07:04 36.6 73 16 129/86 77 123/85 04/15/17 17:53 87 16 137/90 04/15/17 16:15 74 18 149/101 Meds Administered Last 24 Hrs: Meds Administered (Past 24Hrs) Medications (Trade) Dose Ordered Sig/Bob Route Start Time Stop Time Status Last Admin Dose Admin Acetaminophen (Tylenol Tab) 650 mg Q4H PRN PO 04/14/17 18:45 05/14/17 18:44 04/15/17 17:49 650 MG Anastrozole (Arimidex Tab) 1 mg DAILY PO 04/15/17 09:00 05/15/17 08:59 04/16/17 09:10 1 MG Bupropion HCl (Wellbutrin-Sr Tab) 100 mg DAILY PO 04/15/17 09:00 05/15/17 08:59 04/16/17 09:11 100 MG Metformin HCl (Glucophage Tab) 500 mg BIDM PO 04/15/17 09:00 05/15/17 08:59 04/16/17 09:11 500 MG Multivitamins/ Minerals (Multivitamin W/ Minerals Tab) 1 tab DAILY PO 04/15/17 09:00 05/15/17 08:59 04/16/17 09:11 1 TAB Warfarin Sodium (Coumadin Tab) 5 mg SuTuThSa@1600 PO 04/15/17 16:00 05/15/17 15:59 04/15/17 16:05 5 MG Warfarin Sodium (Coumadin Tab) 7.5 mg MoWeFr@1600 PO 04/14/17 18:45 05/14/17 18:44 04/14/17 22:10 7.5 MG Calcium/Vitamin D (Caltrate Plus Tab) 1 tab BID PO 04/14/17 21:00 05/14/17 20:59 04/16/17 09:11 1 TAB Levothyroxine Sodium (Synthroid Tab) 150 mcg DAILYBB PO 04/16/17 08:00 05/16/17 07:59 04/16/17 08:01 150 MCG Levothyroxine Sodium (Synthroid Tab) 150 mcg 0945 ONCE PO 04/15/17 09:45 04/15/17 09:46 DC 04/15/17 09:47 150 MCG Escitalopram Oxalate (Lexapro Tab) 10 mg QAM PO 04/16/17 09:00 05/16/17 08:59 04/16/17 09:11 10 MG Escitalopram Oxalate (Lexapro Tab) 5 mg 0945 ONCE PO 04/15/17 09:45 04/15/17 09:46 DC 04/15/17 09:48 5 MG Lab Results Last 24 Hrs: Last 24 Hours Test 04/16/17 07:22 Fasting Glucose 140 mg/dl
[2017-04-16 11:13] LABS: INR 1.4 (0.9-1.1); PROTHROMBIN TIME (PATIENT) 15.4 SECONDS (9.0-12.0)
[2017-04-16 12:56] VITALS: BP 145/93; PULSE 82
[2017-04-16] MEDS: WARFARIN SOD 5 MG TAB PO SCH (16:02)
[2017-04-16 20:48] VITALS: BP 155/99; PULSE 90
[2017-04-17 06:51] VITALS: BP_SYST 127; BP_SYST 130; BP_DIAS 84; BP_DIAS 88; PULSE 72; PULSE 74; TEMP 36.8
[2017-04-17 07:53] LABS: INR 1.5 (0.9-1.1); PROTHROMBIN TIME (PATIENT) 16.1 SECONDS (9.0-12.0)
--- NOTE | 2017-04-17 08:28 | Psychiatric Progress Notes ---
Progress Note Date of Service Apr 17, 2017. Interval History 61-year-old woman who presents with severe depression and suicidality in the setting of stress with her 's medical conditions and at her work. Her PCP has tried her on higher doses of Wellbutrin, which she cannot tolerate, and so we will add Lexapro 5-10 mg daily. Risks, benefits, alternatives, reviewed and accepted. 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 She will need psychiatric aftercare and will benefit from having a therapist. She had a random glucose of 208 and so we will get a fasting glucose in the a.m. We will monitor her PT INRs daily as she has been running low lately and has a goal range of 2-3. We will schedule a family meeting with her . At this time however she requires inpatient mental health treatment due to the severity of her condition and the risk for self-harm if discharged. Chief Complaint "Good, better". Subjective Patient was seen & assessed interval progress reviewed with treatment team. 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 She is going to groups, and SI has improved. She states that her mood has improved," I don't feel as depressed." She feels safe in the hospital, and denies suicidal thoughts, but states that she was feeling so overwhelmed that she thought suicide was the only answer, "there was no way out. " She continues to have a lot of anxiety, which is triggered by thinking about going back to work stressors at her job. She feels overwhelmed in thinking about returning to work. She says she talked to her and decided she does not want to meeting with her boss, as she does not trust her boss to keep her mental health issues confidential. 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 She remains upset about her negative work evaluation, and states she missed the follow-up meeting where they were going to discuss specific examples of her problem behavior. She does want a meeting with her , and states that he will secure the guns. She reports headaches, dizziness, and "my brain feels foggy," which has been occurring in the evenings for the past 2 days, and wonders if it is from Lexapro. She is sleeping and eating well, stating that she tends to eat and sleep more when she is stressed. She feels that the groups and patient handbook have been very helpful. Sleep Information Total Hours of Sleep: 7.75 Meal Information Percent of Breakfast Consumed: 100 Percent of Lunch Consumed: 80 Percent of Dinner Consumed: 100 Mental Status Exam During interview pt is: alert and oriented, cooperative Appearance: appropriately dressed, appropriately groomed Eye contact is: good Motor behavior is: steady gait & station, no abnormal motor movements Speech: normal in rate, rhythm & volume Affect: depressed (but reactive and appropriate), anxious Mood is: anxious, other ("better") Thought process: goal directed Thought content: reality based without delusions Suicidal thought are: denied Homicidal thoughts are: denied Hallucinations: denies auditory, denies visual Cognition: memory grossly intact, attention grossly intact, language grossly intact Intelligence estimated to be: average Insight: impaired Judgement: impaired Impression Adjusting well to the structure and support of the milieu, utilizing individual as well as group therapy, and working in her patient handbook. Tolerating the start of Lexapro, but with 2 days of headaches, so for now will hold off on further titration and continue 10 mg. daily. FBS 140, reviewed with patient. She is aware of what she needs to do to improve her sugars. She has decided not to have a meeting with her boss, but would like a meeting with her . She will need a plan to secure guns at home, and referrals for outpatient care as well. 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 Continue participation in unit groups and programming. Work on discharge safety plan. (2) Migraines 04/15 -The patient cannot take triptan but does utilize Excedrin Migraine with success (3) Diabetes mellitus type 2, noninsulin dependent 04/15 - FBS in the a.m. she says that she recently had a hemoglobin A1c but cannot remember the value - Diabetic diet - Encourage exercise - Continue home dose of metformin (4) Hypothyroidism 04/15 -TSH within normal limits. Continue home dose of levothyroxine (5) Asthma 04/15 - Continue albuterol inhaler when necessary - (6) history of a blood clot on chronic anticoagulation 04/15 - Continue home dosing of Coumadin - Daily PT INRs with a goal range of 2-3 Has been reviewed with Dr. Felipa arreguin Discharge / Aftercare Planning Therapist: Name: Floridalma Visit Code E&M Code: 26094 [employer] Assets Strengths: Love of family, employed full-time, conscientious Needs: To learn healthy coping strategies Risk Factors Assessment : Yes /single/: No Higher / Fall in social status: No Health problems: Yes Mental Health Diagnoses: Yes Substance use disorders: No Previous attempt: No Previous psychiatric stay: No Hopelessness: No Smoker: No Protective Factors Assessment Muslim beliefs: Yes : Yes Responsible for young children: No Employed: Yes Stable relationships: Yes Supportive family: Yes Data Vital Signs Last 24 Hrs: Date Time Temp Pulse Resp B/P (MAP) Pulse Ox O2 Delivery O2 Flow Rate FiO2 04/17/17 06:51 36.8 74 16 130/84 72 127/88 04/16/17 20:48 90 155/99 04/16/17 12:56 82 145/93 Meds Administered Last 24 Hrs: Meds Administered (Past 24Hrs) Medications (Trade) Dose Ordered Sig/Bob Route Start Time Stop Time Status Last Admin Dose Admin Anastrozole (Arimidex Tab) 1 mg DAILY PO 04/15/17 09:00 05/15/17 08:59 04/16/17 09:10 1 MG Bupropion HCl (Wellbutrin-Sr Tab) 100 mg DAILY PO 04/15/17 09:00 05/15/17 08:59 04/16/17 09:11 100 MG Metformin HCl (Glucophage Tab) 500 mg BIDM PO 04/15/17 09:00 05/15/17 08:59 04/16/17 17:39 500 MG Multivitamins/ Minerals (Multivitamin W/ Minerals Tab) 1 tab DAILY PO 04/15/17 09:00 05/15/17 08:59 04/16/17 09:11 1 TAB Warfarin Sodium (Coumadin Tab) 5 mg SuTuThSa@1600 PO 04/15/17 16:00 05/15/17 15:59 04/16/17 16:02 5 MG Levothyroxine Sodium (Synthroid Tab) 150 mcg DAILYBB PO 04/16/17 08:00 05/16/17 07:59 04/16/17 08:01 150 MCG Levothyroxine Sodium (Synthroid Tab) 150 mcg 0945 ONCE PO 04/15/17 09:45 04/15/17 09:46 DC 04/15/17 09:47 150 MCG Escitalopram Oxalate (Lexapro Tab) 10 mg QAM PO 04/16/17 09:00 05/16/17 08:59 04/16/17 09:11 10 MG Escitalopram Oxalate (Lexapro Tab) 5 mg 0945 ONCE PO 04/15/17 09:45 04/15/17 09:46 DC 04/15/17 09:48 5 MG Lab Results Last 24 Hrs: Last 24 Hours Test 04/16/17 10:39 04/17/17 07:18 Prothrombin Time 15.4 SECONDS 16.1 SECONDS Prothromb Time International Ratio 1.4 1.5
[2017-04-17] MEDS: LEVOTHYROXINE 150 MCG TAB PO SCH (09:05)
[2017-04-17] MEDS: ANASTROZOLE 1 MG TAB PO SCH (09:05)
[2017-04-17] MEDS: ESCITALOPRAM OXALATE 10 MG TAB PO SCH (09:06)
[2017-04-17] MEDS: CEROVITE ADV FORMULA TAB PO SCH (09:06)
[2017-04-17] MEDS: METFORMIN HCL 500 MG TAB PO SCH ×2 (09:06→17:45)
[2017-04-17] MEDS: CALCIUM 600MG + VIT D 400 IU TAB PO SCH ×2 (09:06→21:17)
[2017-04-17] MEDS: BuPROPion SR 100 MG TABCR PO SCH (09:06)
[2017-04-17] MEDS: ACETAMINOPHEN 325 MG TAB PO PRN (15:04)
[2017-04-17 15:14] VITALS: BP 143/90; PULSE 79
[2017-04-17] MEDS: WARFARIN SOD 7.5 MG TAB PO SCH (16:01)
[2017-04-18 06:54] VITALS: BP_SYST 130; BP_SYST 143; BP_DIAS 90; BP_DIAS 91; PULSE 67; PULSE 77; TEMP 36.5
[2017-04-18 07:37] LABS: INR 1.5 (0.9-1.1); PROTHROMBIN TIME (PATIENT) 16.7 SECONDS (9.0-12.0)
[2017-04-18] MEDS: LEVOTHYROXINE 150 MCG TAB PO SCH (07:51)
[2017-04-18] MEDS: BuPROPion SR 100 MG TABCR PO SCH (08:29)
[2017-04-18] MEDS: ESCITALOPRAM OXALATE 10 MG TAB PO SCH (08:29)
[2017-04-18] MEDS: METFORMIN HCL 500 MG TAB PO SCH ×2 (08:29→17:12)
[2017-04-18] MEDS: ANASTROZOLE 1 MG TAB PO SCH (08:29)
[2017-04-18] MEDS: CALCIUM 600MG + VIT D 400 IU TAB PO SCH ×2 (08:29→21:14)
[2017-04-18] MEDS: CEROVITE ADV FORMULA TAB PO SCH (08:29)
--- NOTE | 2017-04-18 12:24 | Psychiatric Progress Notes ---
Progress Note Date of Service Apr 18, 2017. Interval History 61-year-old woman who presents with severe depression and suicidality in the setting of stress with her 's medical conditions and at her work. Her PCP has tried her on higher doses of Wellbutrin, which she cannot tolerate, and so we will add Lexapro 5-10 mg daily. Risks, benefits, alternatives, reviewed and accepted. 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 She will need psychiatric aftercare and will benefit from having a therapist. She had a random glucose of 208 and so we will get a fasting glucose in the a.m. We will monitor her PT INRs daily as she has been running low lately and has a goal range of 2-3. We will schedule a family meeting with her . At this time however she requires inpatient mental health treatment due to the severity of her condition and the risk for self-harm if discharged. Chief Complaint "Feeling better, but I think I need a little more time". Subjective Patient was seen & assessed interval progress reviewed with Nursing. Staff report she is going to groups and participating. She reported a headache and dizziness yesterday afternoon, which improved with Tylenol. She has a meeting with her this afternoon. She continues to express anxiety about returning to work, saying she doesn't know who she can trust there, and worries that coworkers are talking badly about her behind her back. She is sleeping and eating well, and reports improved mood. She denies SI, and is hoping she will be ready for discharge to home tomorrow. Sleep Information Total Hours of Sleep: 8.00 Meal Information Percent of Breakfast Consumed: 100 Percent of Lunch Consumed: 85 Percent of Dinner Consumed: 100 Mental Status Exam During interview pt is: alert and oriented, cooperative Appearance: appropriately dressed, appropriately groomed Eye contact is: good Motor behavior is: steady gait & station, no abnormal motor movements Speech: normal in rate, rhythm & volume Affect: anxious Mood is: anxious, other ("better") Thought process: goal directed Thought content: reality based without delusions Suicidal thought are: denied Homicidal thoughts are: denied Hallucinations: denies auditory, denies visual Cognition: memory grossly intact, attention grossly intact, language grossly intact Intelligence estimated to be: average Insight: fair Judgement: fair Impression Adjusting well to the structure and support of the milieu, utilizing individual as well as group therapy, and working in her patient handbook. Tolerating the start of Lexapro, and although she is reporting daily mild headaches and dizziness, this is unlikely to be related to escitalopram, but for now will hold off on further titration and continue 10 mg. daily. FBS 140, reviewed with patient. She is aware of what she needs to do to improve her sugars. She has decided not to have a meeting with her boss, but will have a meeting with her today. She will need a plan to secure guns at home, and referrals for outpatient care as well. 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 Continue participation in unit groups and programming. Work on discharge safety plan. 04/18 - Referred for aftercare, family meeting with , and continue escitalopram as above. (2) Migraines 04/15 -The patient cannot take triptan but does utilize Excedrin Migraine with success (3) Diabetes mellitus type 2, noninsulin dependent 04/15 - FBS in the a.m. she says that she recently had a hemoglobin A1c but cannot remember the value - Diabetic diet - Encourage exercise - Continue home dose of metformin (4) Hypothyroidism 04/15 -TSH within normal limits. Continue home dose of levothyroxine (5) Asthma 04/15 - Continue albuterol inhaler when necessary - (6) history of a blood clot on chronic anticoagulation 04/15 - Continue home dosing of Coumadin - Daily PT INRs with a goal range of 2-3 Has been reviewed with Dr. Felipa arreguin Discharge / Aftercare Planning Therapist: Name: Floridalma Visit Code E&M Code: 27110 Inventory Assets Strengths: Love of family, employed full-time, conscientious Needs: To learn healthy coping strategies Risk Factors Assessment : Yes /single/: No Higher / Fall in social status: No Health problems: Yes Mental Health Diagnoses: Yes Substance use disorders: No Previous attempt: No Previous psychiatric stay: No Hopelessness: No Smoker: No Protective Factors Assessment Caodaism beliefs: Yes : Yes Responsible for young children: No Employed: Yes Stable relationships: Yes Supportive family: Yes Data Vital Signs Last 24 Hrs: Date Time Temp Pulse Resp B/P (MAP) Pulse Ox O2 Delivery O2 Flow Rate FiO2 04/18/17 06:54 36.5 67 16 143/91 77 130/90 04/17/17 15:14 79 143/90 Lab Results Last 24 Hrs: Last 24 Hours Test 04/17/17 16:05 04/17/17 17:16 04/18/17 07:15 Bedside Glucose 179 mg/dl 118 mg/dl Prothrombin Time 16.7 SECONDS Prothromb Time International Ratio 1.5
[2017-04-18] MEDS: WARFARIN SOD 5 MG TAB PO SCH (16:08)
[2017-04-19 06:58] VITALS: BP_SYST 125; BP_DIAS 79; BP_DIAS 87; PULSE 73; PULSE 76; TEMP 36.9
[2017-04-19 07:36] LABS: INR 1.6 (0.9-1.1); PROTHROMBIN TIME (PATIENT) 17.7 SECONDS (9.0-12.0)
[2017-04-19] MEDS: LEVOTHYROXINE 150 MCG TAB PO SCH (07:56)
[2017-04-19] MEDS ORDERED: LXP10 PO (08:12)
--- NOTE | 2017-04-19 09:11 | Discharge Instructions ---
Discharge Information Report Includes Report will include the: Discharge Instructions & Summary Admission Admission Date / Time: Apr 14, 2017 at 18:47 Reason for Admission: Major Depressive Disorder Discharge Discharge Diagnosis / Problem: Depression Condition at Discharge: Good Discharge Goals Goal(s): Improve function, Improve disease control, Learn about illness, Therapeutic intervention Activity Recommendations Activity Limitations: per Instructions/Follow-up section . Instructions / Follow-Up Instructions / Follow-Up . SPECIAL CARE INSTRUCTIONS: 1. Follow through with your scheduled aftercare appointments. If unable to keep an appointment, please call to reschedule. 2. Take your medication only as prescribed. Medication should not be changed or stopped without the approval of your doctor. In the event of worsening symptoms or concerns about side effects, contact your doctor immediately. 3. Utilize new healthy coping skills, anger management skills, and stress management skills learned during your hospitalization. Journal feelings and process them with a support person. Identify stressors or situations that may result in relapse, deterioration or inappropriate behaviors and develop a plan to deal with those issues. 4. If your coping skills are ineffective and you are in crisis, contact your outpatient providers for direction. If unable to reach your providers, please call the CAN HELP LINE AT or go to the closest Emergency Room. 5. Avoid alcohol and un-prescribed drugs. 6. You have been provided with the Mental Health Advance Directives Pamphlet for your review. AFTERCARE APPOINTMENTS: * Please call your insurance company prior to your scheduled appointment to confirm your aftercare providers are covered. Take your insurance information to your appointments. . Discharge / Aftercare Planning Primary Care Physician: Name: Dr. Nelson Psychiatrist: Name: Dr. Trujillo, [facility],[address] [facility], [place] [address] Appointment Notes: please take photo ID, co-pay, and credit card to keep on file to appt Therapist: Name Of Therapist: Jamilah Graham Date of Appointment: Apr 21, 2017 Time of Appointment: 10:30 Appointment Comments: please arrive at 10:30 for paperwork will be seen at 11am . Follow-Up Care Plan for Follow-Up Care: See above. Current Hospital Diet Patient's current hospital diet: Regular Diet Discharge Diet Recommended Diet: Regular Diet Procedures Procedures Performed: No Pending Studies Pending Studies at Discharge: No Medical Emergencies . Who to Call and When: Medical Emergencies: For questions or emergencies related to your hospital stay, please contact the Inpatient Behavioral Health Unit at [phone]. A senior revenue accountant is on-call 27/03 for the Behavioral Health Unit for emergencies At any time you feel your situation is an emergency, you may also call 911 immediately. . Non-Emergent Contact Non-Emergency issues call your: Primary Care Provider, Psychiatrist, Therapist Past History Medical & Surgical History: (1) Migraines (2) History of breast cancer (3) history of a blood clot on chronic anticoagulation (4) Diabetes mellitus type 2, noninsulin dependent (5) Hypothyroidism (6) Asthma Advance Directives Existing Advance Directive: No Do You Have an Existing Mental: No Existing Living Will: No Existing Power of Bird Raiser: No Advance Directives Info Given: To Pt/S.O. Advance Directives Reason: Declines as Mental Health Visit. Discharge Summary Admission HPI Per the Admitting provider: Flaquita Bryan is a 61-year-old woman who is not currently in any psychiatric outpatient care, who reports that she has been increasingly depressed for the last 2 months. She first experienced depression about 10 years ago when her uncle and she was unable to be with him at the time of his . She did have therapy at that time which she felt was helpful. She has also been on Wellbutrin from her primary care provider for years. He did recently try to increase the dose which she could not tolerate due to nausea and stomach cramps. She has been under stress at home, as her has been having increasing medical problems including having symptomatic PVCs with shortness of breath and significant rectal pain. 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 She has not worked proof machine operator supervisor in years and she has been doing so for the last 9 months, and finding it a difficult transition. Last Monday, she had a performance evaluation and was surprised to find that they were not satisfied with her performance. She was shocked by this as she feels that she doesn't good job, works hard and is conscientious. She did not feel as if the director's of nursing who gave her her review was professional nor did she have specific examples to support the poor review. Since that time, the patient has had increasing suicidal thoughts. She has had thoughts to overdose on her 's Percocet. Although she owns a gun, she denies she would ever use a gun on herself. Today the patient is quite tearful describing that she feels she is "letting everybody down" by being in the hospital. She sees her most acute stress as that of her poor work evaluation and would like to challenge that in some way. Her sleep has been "a lot" and feels that she is always tired. Her appetite is "too good" as she stress eats, however her weight has been fluctuant. Her anxiety is "a lot" and usually triggered by work. She feels that she has episodes of increased anxiety but denies that these rise to the level of a panic attack. She denies ever having had auditory or visual hallucinations. Her energy is quite low and she no longer enjoys things that she previously did such as going to camp or walking. She is isolating socially, not wanting to be around people. She denies any symptoms of OCD. She denies any discrete episodes of euphoric mood, sleeplessness or pleasure seeking behaviors that would be congruent with a bipolar disorder. She denies any self-injurious acts. Admission Exam Per the Admitting provider: Please see admission H&P. Consultations None. Hospital Course (1) Major depressive disorder, recurrent severe without psychotic features 04/15 -Start Lexapro 5 mg today increasing to 10 mg tomorrow - Continue Wellbutrin SR 100 mg daily - Family meeting with - Encourage participation in group and individual counseling - Every 15 minute checks for safety - Patient will need psychiatric aftercare - Patient seems willing to have a phone conference with her mitigation supervisor to discuss her poor work review - Assist the patient to learn and utilize healthy coping strategies 04/16 - Continue current meds - Will need to schedule family meeting 04/17 - Continue escitalopram 10 mg daily and monitor headaches. Continue participation in unit groups and programming. Work on discharge safety plan. 04/18 - Referred for aftercare, family meeting with , and continue escitalopram as above. 04/19 - Mood improved, consistently denying suicidal thoughts, and patient requesting discharge. Has been comfortable with discharge plan, and his confirmed that guns are secured and she will not have access to them. Outpatient follow-up arranged. (2) Migraines 04/15 -The patient cannot take triptan but does utilize Excedrin Migraine with success (3) Diabetes mellitus type 2, noninsulin dependent 04/15 - FBS in the a.m. she says that she recently had a hemoglobin A1c but cannot remember the value - Diabetic diet - Encourage exercise - Continue home dose of metformin (4) Hypothyroidism 04/15 -TSH within normal limits. Continue home dose of levothyroxine (5) Asthma 04/15 - Continue albuterol inhaler when necessary - (6) history of a blood clot on chronic anticoagulation 04/15 - Continue home dosing of Coumadin - Daily PT INRs with a goal range of 2-3 Risk Factors Assessment : Yes /single/: No Higher / Fall in social status: No Access to guns: No ( confirmed that guns are secured) Health problems: Yes Mental Health Diagnoses: Yes Substance use disorders: No Previous attempt: No Family history of suicide: No Previous psychiatric stay: No Hopelessness: No Smoker: No Protective Factors Assessment Buddhist beliefs: Yes : Yes Responsible for young children: No Employed: Yes Stable relationships: Yes Supportive family: Yes Good rapport with provider: Yes (patient will see this physician in my outpatient practice for follow-up) Absence of risk factors above: Yes (risk factors mitigated by admission to the inpatient unit, adjusting medications to target depression, involving her in groups and therapy on the unit, a family meeting with her , ensuring that guns are secured, working on healthy coping skills and her discharge safety plan, and referring her for outpatient psychiatric follow-up and therapy. The patient has demonstrated improved mood, is consistently denying suicidal thoughts, is doing ADLs independently, and is tolerating medications. She is requesting discharge, and as she is no longer at acute risk of harm to herself, can be managed as an outpatient at this time. She is not at increased risk for harm to others.) Day of Discharge Assessment Hospital Course: On admission, the patient was started on escitalopram to target recurrent depression, and the dose was increased to 10 mg daily. She was concerned that the daily headaches and dizziness she was experiencing in the afternoons might be due to the medication, and although it was felt this was unlikely, further dose titration was postponed due to these concerns. She demonstrated good participation in groups and therapy, and worked on her patient handbook, and mood improved throughout the course of her stay. She was able to process her stressors, primarily work issues. She was offered a family meeting with her boss in order to discuss her recent negative work review, but ultimately declined this, fearing that her boss would not keep her mental health issues confidential. She did have a family meeting with her , who was supportive, and confirmed that guns in the home are secured in the patient would not have access to them. She also had good support from her son, who visited her in the hospital. Her suicidal suicidal thoughts resolved while in the hospital, and she demonstrated good sleep and appetite. She was referred for outpatient services. Day of Discharge Assessment: Patient reports improved mood and anxiety, stating that she is feeling positive and hopeful about the future. She denies thoughts of harming herself or anyone else, and feels ready to go home. She is planning to return to work on Monday, and feels able to use the coping skills she's worked on here to manage her anxiety. She is able to review her safety plan, and reports good support from her and son. She is looking forward to returning home today, and denies any safety concerns with discharge. Well nourished, well developed WF appearing stated age. Casually dressed and adequately groomed. Calm and cooperative. Seated in NAD, with fair eye contact and no abnormal movements. Speech is normal rate, volume, and tone. Mood is "good, much better," and affect is stable and congruent. Thoughts are linear, logical and goal directed. The patient denied suicidal and homicidal ideation and was able to safety plan. No paranoia, delusions, or hallucinations , and did not appear to be responding to internal stimuli. Cognition was grossly intact. Alert and oriented to person, place and time. Intelligence is consistent with level of education. Insight and and judgment are good. Laboratory Test 04/14/17 16:53 04/14/17 17:29 04/16/17 07:22 04/18/17 07:15 Urine Color YELLOW Urine Appearance CLEAR Urine pH 5.0 Urine Specific [place] 1.034 Urine Protein NEG Urine Glucose (UA) 3+ Urine Ketones TRACE Urine Occult Blood NEG Urine Nitrite NEG Urine Bilirubin NEG Urine Urobilinogen NEG Urine Leukocyte Esterase NEG Urine Opiates Screen NEG Urine Methadone, Qualitative NEG Urine Barbiturates NEG Urine Phencyclidine (PCP) Level NEG Ur Amphetamine/Methamphetamine NEG Urine MDE-amphetamine (MDEA) Pending Ur Methylenedioxyamphetamine (MDA) Pending MDMA (Ecstasy) Screen POS Methylenedioxymethamphetamine (MDMA Pending Urine Benzodiazepines Screen NEG Urine Cocaine Metabolite NEG Urine Marijuana (THC) NEG White Blood Count 7.78 Red Blood Count 4.34 Hemoglobin 13.9 Hematocrit 40.7 Mean Corpuscular Volume 93.8 Mean Corpuscular Hemoglobin 32.0 Mean Corpuscular Hemoglobin Concent 34.2 Platelet Count 231 Mean Platelet Volume 9.4 Neutrophils (%) (Auto) 55.0 Lymphocytes (%) (Auto) 35.3 Monocytes (%) (Auto) 6.7 Eosinophils (%) (Auto) 2.3 Basophils (%) (Auto) 0.4 Neutrophils # (Auto) 4.28 Lymphocytes # (Auto) 2.75 Monocytes # (Auto) 0.52 Eosinophils # (Auto) 0.18 Basophils # (Auto) 0.03 RDW Standard Deviation 44.3 RDW Coefficient of Variation 12.8 Immature Granulocyte % (Auto) 0.3 Immature Granulocyte # (Auto) 0.02 Sodium Level 141 Potassium Level 3.7 Chloride Level 107 Carbon Dioxide Level 26 Anion Gap 8.0 Blood Urea Nitrogen 13 Creatinine 1.10 Est Creatinine Clear Calc Drug Dose 53.9 Estimated GFR () 62.3 Estimated GFR (Non- 53.8 BUN/Creatinine Ratio 12.2 Random Glucose 208 Calcium Level 9.5 Total Bilirubin 0.1 Direct Bilirubin < 0.1 Aspartate Amino Transferase (AST) 24 Alanine Aminotransferase (ALT) 46 Alkaline Phosphatase 70 Total Protein 7.0 Albumin 3.4 Thyroid Stimulating Hormone (TSH) 1.750 Ethyl Alcohol mg/dL < 3.0 Fasting Glucose 140 Prothrombin Time 16.7 Prothrombin Time INR 1.5 Test 04/18/17 07:49 04/19/17 06:49 04/19/17 07:50 POC Glucose 135 138 Prothrombin Time 17.7 Prothrombin Time INR 1.6 Total Time Total Time Spent (min): Greater than 30 minutes Total Time Included: examination of the patient, discharge planning, medication reconciliation Tobacco Cessation at Discharge Smoking Status: Never Smoker FDA approved Prescription: non-smoker
[2017-04-19] MEDS: CALCIUM 600MG + VIT D 400 IU TAB PO SCH (09:25)
[2017-04-19] MEDS: ANASTROZOLE 1 MG TAB PO SCH (09:25)
[2017-04-19] MEDS: CEROVITE ADV FORMULA TAB PO SCH (09:26)
[2017-04-19] MEDS: BuPROPion SR 100 MG TABCR PO SCH (09:26)
[2017-04-19] MEDS: ESCITALOPRAM OXALATE 10 MG TAB PO SCH (09:26)
[2017-04-19] MEDS: METFORMIN HCL 500 MG TAB PO SCH (09:26)
== END 2017-04-19 10:45 | disposition home or self-care (01) | DRG 885 ==
LOC: C.EDB 15:58 → C.MHU 18:47 → ENRESERV 19:11
PROVIDERS: ADMIT Psychiatry & Neurology Child & Adolescent Psychiatry; ATTEND Psychiatry & Neurology Child & Adolescent Psychiatry
DX: F33.2 Major depressive disorder, recurrent severe without psychotic features (principal); R45.851 Suicidal ideations; E03.9 Hypothyroidism, unspecified; E11.9 Type 2 diabetes mellitus without complications; J45.909 Unspecified asthma, uncomplicated; Z79.01 Long term (current) use of anticoagulants; Z79.84 Long term (current) use of oral hypoglycemic drugs; Z79.899 Other long term (current) drug therapy; Z86.718 Personal history of other venous thrombosis and embolism

== ENCOUNTER 2017-11-05 01:42 | Emergency (ER) | payer BC, OTHER ==
[~2017-11-05] VITALS: Ht 152.4 cm; Wt 92.5 kg
[~2017-11-05 01:42] MED LIST changes: +BUPR100T8 PO; -BUPR150T5 PO; -EPP3/2 IM; +LEVO150T PO; +LXP10 PO
[2017-11-05 01:52] VITALS: TEMP 36.4; Ht 152.4 cm; Wt 92.5 kg
[2017-11-05 02:31] LABS: BASO % 0.5 %; BASO ABS # 0.04 K/uL (0-0.2); EOS % 2.6 %; EOS ABS # 0.19 K/uL (0-0.5); HEMATOCRIT 39.4 % (37-47); HEMOGLOBIN 13.7 g/dL (12.0-16.0); IG# 0.02 K/uL (0.00-0.02); LYMPH % 35.4 %; LYMPH ABS # 2.61 K/uL (1.2-3.4); MEAN CELL VOLUME 92.1 fL (80-100); MEAN CORPUSCULAR HGB CONC 34.8 g/dl (32-36); MEAN PLATELET VOLUME 9.2 fL (7.4-10.4); MONO % 10.6 %; MONO ABS # 0.78 K/uL (0.11-0.59); NEUT % 50.6 %; NEUT ABS # 3.74 K/uL (1.4-6.5); PLATELET COUNT 205 K/uL (130-400); RED CELL DISTRIBUTION WIDTH CV 13.4 % (11.5-14.5); RED CELL DISTRIBUTION WIDTH SD 44.8 fL (36.4-46.3); WHITE BLOOD COUNT 7.38 K/uL (4.8-10.8)
[2017-11-05 02:44] LABS: INR 1.9 (0.9-1.1)
[2017-11-05 03:00] LABS: ALBUMIN 3.6 gm/dl (3.4-5.0); ALT/SGPT 36 U/L (12-78); AST/SGOT 20 U/L (15-37); BLOOD UREA NITROGEN 14 mg/dl (7-18); CALCIUM 8.8 mg/dl (8.5-10.1); CARBON DIOXIDE 25 mmol/L (21-32); CREATININE 0.83 mg/dl (0.60-1.20); GLUCOSE 201 mg/dl (70-99); LIPASE 334 U/L (73-393); POTASSIUM 3.7 mmol/L (3.5-5.1); SODIUM 137 mmol/L (136-145)
[2017-11-05 03:11] LABS: ALKALINE PHOSPHATASE 81 U/L (45-117); TOTAL PROTEIN 7.3 gm/dl (6.4-8.2)
[2017-11-05] MEDS ORDERED: BUPR-79 PO (03:18)
[2017-11-05] MEDS ORDERED: LEVO150T9 PO (03:21)
[2017-11-05] MEDS ORDERED: CITA10TA4 PO (03:25)
[2017-11-05] MEDS ORDERED: ASPI-390 PO (03:26)
[2017-11-05] MEDS ORDERED: CLIN300C2 PO (03:28)
[2017-11-05] MEDS ORDERED: DEXAMETHASONE **PF** INJ 10 MG/ML VIAL IV ONE (03:45)
--- NOTE | 2017-11-05 04:46 | EMERGENCY ROOM VISIT NOTE ---
History First contact with patient: 02:01 Chief Complaint: CARDIAC ASSESSMENT Stated Complaint: ELEVATED BP & SUGAR,PAIN DOWN LFT ARM,DIZZY,SOB Nursing Triage Summary: Pt reports high blood pressure recently with some chest discomfort and pain in her arms. Pt also reports increased blood sugar as well. History of Present Illness The patient is a 62 year old female who presents to the Emergency Room with complaints of neck pain that radiates down her left arm throughout the day described as aching, ranging in severity 6 out of 10. Nothing makes it better or worse. Her blood sugar has been running a little high. She has been feeling fatigued. No prior heart disease. Patient is on Coumadin for history of PE. She is 6 years cancer free. Patient denies chest pain, dyspnea, fever, chills, back pain, leg pain or swelling, urinary symptoms, diaphoresis, vomiting , abdominal pain, localized weakness. No injury to the area. Patient's INR earlier today was 1.7. She had this checked with her Coumadin doctor. They adjusted her medicine today. Review of Systems An 10 system review of systems was completed with positives and pertinent negatives listed in the HPI. Past Medical/Surgical History Medical Problems: (1) Asthma (2) Depression (3) history of a blood clot on chronic anticoagulation (4) History of breast cancer (5) Major depressive disorder, recurrent severe without psychotic features (6) Migraines Family History FH: cardiovascular disease FH: diabetes mellitus Social History Smoking Status: Never Smoker Alcohol Use: none Drug Use: none Marital Status: Housing Status: lives with family Occupation Status: employed Current/Historical Medications Scheduled Anastrozole (Arimidex), 1 MG PO DAILY Bupropion (Wellbutrin Sr), 150 MG PO DAILY Calcium Citrate-Vitamin D (Citracal Maximum), 2 TAB PO BID Citalopram Hydrobromide (Citalopram Hydrobromide), 10 MG PO DAILY Clindamycin Hcl (Cleocin), 300 MG PO TID Levothyroxine Sodium (Levothyroxine Sodium), 150 MCG PO DAILY Metformin Hcl (Glucophage), 500 MG PO BID Multiple Vitamins W/ Minerals (Centrum Silver Adult 50+), 1 TAB PO DAILY Warfarin Sod (Jantoven), 7.5 MG PO UD Warfarin Sod (Jantoven), 5 MG PO UD Scheduled PRN Albuterol Hfa (Ventolin Hfa), 2-4 PUFFS INH Q6H PRN for SOB/Wheezing Vcxbihw-Chhndkxngrxgf-Bbfjinkn (Excedrin Migraine), 1 TAB PO BID PRN for Migraine Physical Exam Vital Signs Date Time Temp Pulse Resp B/P (MAP) Pulse Ox O2 Delivery O2 Flow Rate FiO2 11/05/17 04:18 82 20 153/99 97 Room Air 11/05/17 03:30 67 20 142/106 95 Room Air 11/05/17 02:27 Room Air 11/05/17 02:05 79 11/05/17 01:52 36.4 80 20 142/93 95 Room Air Physical Exam VITALS: Vitals are noted on the nurse's note and reviewed by myself. Vital signs hypertensive. GENERAL: Pleasant female anxious appearing, in no acute distress, nondiaphoretic , well-developed well-nourished. SKIN: The skin was without rashes, erythema, edema, or bruising. There is no tenting of the skin. Capillary reflex less than 2 seconds. HEAD: Normocephalic atraumatic. EARS: External auditory canals clear, tympanic membranes pearly mac without erythema or effusion bilaterally. EYES: Pupils equal round and reactive to light and accommodation. Conjunctivae without injection, sclerae without icterus. Extraocular movements intact. NOSE: Patent, turbinates without inflammation or discharge. No sinus tenderness. MOUTH: Mucous membranes moist. Pharynx without erythema or exudate. Uvula midline. Airway patent. Tongue does not deviate. NECK: Supple without nuchal rigidity. No lymphadenopathy. No thyromegaly. Cervical spine is nontender. No JVD. HEART: Regular rate and rhythm without murmurs gallops or rubs. LUNGS: Clear to auscultation bilaterally without wheezes, rales or rhonchi. No retractions or accessory muscle use. ABDOMEN: Positive bowel sounds x 4. Normal tympanic percussion. Soft, nontender, without masses or organomegaly. Grace sign negative. No guarding or rebound tenderness. No CVA tenderness MUSCULOSKELETAL: No muscle atrophy, erythema, or edema noted. NEURO: Patient was alert and oriented to person place and time. Normal sensation to light and sharp touch. No focal neurological deficits. Medical Decision & Procedures Laboratory Results 11/05/17 02:20 Red Blood Count 4.28, Mean Corpuscular Volume 92.1, Mean Corpuscular Hemoglobin 32.0, Mean Corpuscular Hemoglobin Concent 34.8, Mean Platelet Volume 9.2, Neutrophils (%) (Auto) 50.6, Lymphocytes (%) (Auto) 35.4, Monocytes (%) (Auto) 10.6, Eosinophils (%) (Auto) 2.6, Basophils (%) (Auto) 0.5, Neutrophils # (Auto ) 3.74, Lymphocytes # (Auto) 2.61, Monocytes # (Auto) 0.78, Eosinophils # (Auto ) 0.19, Basophils # (Auto) 0.04 11/05/17 02:20 Test 11/05/17 02:20 11/05/17 03:20 11/05/17 04:24 White Blood Count 7.38 K/uL (4.8-10.8) Red Blood Count 4.28 M/uL (4.2-5.4) Hemoglobin 13.7 g/dL (12.0-16.0) Hematocrit 39.4 % (37-47) Mean Corpuscular Volume 92.1 fL (80-100) Mean Corpuscular Hemoglobin 32.0 pg (25-34) Mean Corpuscular Hemoglobin Concent 34.8 g/dl (32-36) Platelet Count 205 K/uL (130-400) Mean Platelet Volume 9.2 fL (7.4-10.4) Neutrophils (%) (Auto) 50.6 % Lymphocytes (%) (Auto) 35.4 % Monocytes (%) (Auto) 10.6 % Eosinophils (%) (Auto) 2.6 % Basophils (%) (Auto) 0.5 % Neutrophils # (Auto) 3.74 K/uL (1.4-6.5) Lymphocytes # (Auto) 2.61 K/uL (1.2-3.4) Monocytes # (Auto) 0.78 K/uL (0.11-0.59) Eosinophils # (Auto) 0.19 K/uL (0-0.5) Basophils # (Auto) 0.04 K/uL (0-0.2) RDW Standard Deviation 44.8 fL (36.4-46.3) RDW Coefficient of Variation 13.4 % (11.5-14.5) Immature Granulocyte % (Auto) 0.3 % Immature Granulocyte # (Auto) 0.02 K/uL (0.00-0.02) Prothrombin Time 19.8 SECONDS (9.0-12.0) Prothromb Time International Ratio 1.9 (0.9-1.1) Anion Gap 8.0 mmol/L (3-11) Est Creatinine Clear Calc Drug Dose 70.4 ml/min Estimated GFR () 87.0 Estimated GFR (Non- 75.0 BUN/Creatinine Ratio 17.0 (10-20) Calcium Level 8.8 mg/dl (8.5-10.1) Magnesium Level 1.7 mg/dl (1.8-2.4) Total Bilirubin 0.3 mg/dl (0.2-1) Direct Bilirubin 0.1 mg/dl (0-0.2) Aspartate Amino Transf (AST/SGOT) 20 U/L (15-37) Alanine Aminotransferase (ALT/SGPT) 36 U/L (12-78) Alkaline Phosphatase 81 U/L (45-117) Troponin I < 0.015 ng/ml (0-0.045) Total Protein 7.3 gm/dl (6.4-8.2) Albumin 3.6 gm/dl (3.4-5.0) Lipase 334 U/L (73-393) Thyroid Stimulating Hormone (TSH) 2.990 uIu/ml (0.300-4.500) Urine Color YELLOW Urine Appearance CLEAR (CLEAR) Urine pH 5.0 (4.5-7.5) Urine Specific [place] 1.041 (1.000-1.030) Urine Protein NEG (NEG) Urine Glucose (UA) 3+ (NEG) Urine Ketones NEG (NEG) Urine Occult Blood NEG (NEG) Urine Nitrite NEG (NEG) Urine Bilirubin NEG (NEG) Urine Urobilinogen NEG (NEG) Urine Leukocyte Esterase NEG (NEG) Bedside Troponin I < 0.030 ng/ml (0-0.045) Medications Administered Medications (Trade) Dose Ordered Sig/Bob Route Start Time Stop Time Status Last Admin Dose Admin Dexamethasone Sodium Phosphate (Dexamethasone Inj Pf) 10 mg NOW ONCE IV 11/05/17 03:45 11/05/17 03:46 DC 11/05/17 03:46 10 MG ED Course Prior records/ancillary studies reviewed. Triage Nursing notes reviewed. Additional history obtained from family The patient's history was concerning for neck pain down left arm with fatigue Differential diagnosis: Etiologies such as cervical radiculopathy, thyroid problem, electrolyte abnormality, cardiac ischemia, aortic dissection, pulmonary embolism, pneumonia , pneumothorax, musculoskeletal, infections, pericarditis, myocarditis, esophageal rupture, gastrointestinal, as well as others were entertained. Physical examination: As above. ER treatment provided: Decadron On reassessment the patient felt better. Diagnostic interpretation by me: The electrocardiogram was negative for pathologic change. Normal sinus, normal intervals, anteroseptal T-wave inversions, rate of 68. EKG compared to prior EKG with no acute changes noted. Impression normal sinus rhythm with T-wave inversions in the anterior septal leads interpreted by myself unchanged. Repeat EKG while the patient was here is also unchanged. The labs revealed negative troponin 2 greater than 2 hours apart. Euthyroid. Negative urine. Hyperglycemia without DKA Imaging studies: Chest x-ray with no acute consolidation, pneumothorax or free of my interpretation Exam and history seem consistent with cervical radiculopathy and subtherapeutic INR. Patient's INR is 0.1 down. She had this adjusted today. She is advised to follow-up with her Coumadin doctor for further evaluation and workup for this. Patient was advised to follow-up family can a few days for further evaluation and workup for her ongoing arm pain and elevated blood sugars. Patient was neurovascularly and neurologically intact. She had an unchanged EKG. 2 negative troponins. She is well-appearing. She is advised to return to the ER immediately for chest pain, difficulty breathing, worsening signs or symptoms or as needed. By the evaluation outlined above emergent etiologies such as cardiac ischemia, aortic dissection, pulmonary embolism, pneumonia, pneumothorax, infections, pericarditis, myocarditis, gastrointestinal, as well as others were deemed relatively unlikely. The pt informed about the findings as listed above. All questions were answered and pleased with the treatment. Return instructions were outlined and the patient was discharged in stable condition. Referral: The patient was referred back to primary care physician for follow-up in 2 to 3 days for a recheck of the current condition. Case reviewed with my attending The chart was completed utilizing [id number] voice recognition software. Grammatical errors, random word insertions, pronoun errors, and incomplete sentences are an occassional consequence of this system due to software limitations, ambient noise, and hardware issues. Any formal questions or concerns about the content, text, or information contained within the body of this dictation should be directly addressed to the physician assistant mechanic for clarification. Medical Decision As above Medication Reconcilliation Current Medication List: was personally reviewed by me Blood Pressure Screening Patient's blood pressure: Elevated blood pressure Blood pressure disposition: Elevated BP felt to be situational Impression Primary Impression: Cervical radiculopathy Additional Impression: Subtherapeutic international normalized ratio (INR) Departure Information Dispostion Home / Self-Care Condition GOOD Referrals Yudi Dailey (PCP) Patient Instructions My [facility] Additional Instructions Your INR is 1.9. This is slightly low. Recheck this with the family care doctor. Monitor your blood sugar. It was high today. Acetaminophen(Tylenol) may be used for fever or pain. Use 1000mg every six hours as needed. Avoid using more than 3000mg in a 24 hour period. Rest and drink plenty of fluids as tolerated. Continue current medications. Avoid strenuous activities and anything that worsens your pain. Resume normal activities once your symptoms resolve. Return to the ER immediately for worsening or persistent arm pain, abdominal pain, vomiting, fevers, chest pains, difficulty breathing, worsening of your condition, or as needed. Follow up with your primary physician in 2-3 days for a recheck of your current condition. Problem Qualifiers
[2017-11-05 04:52] VITALS: BP 149/97; PULSE 80; O2SAT 97
--- NOTE | 2017-11-05 09:30 | DIAGNOSTIC IMAGING REPORT ---
SINGLE VIEW CHEST CLINICAL HISTORY: Atypical chest pain. FINDINGS: An AP, portable, upright chest radiograph is compared to study dated 08/12/2013. The examination is degraded by portable technique, large body habitus, and apical lordotic positioning. The heart is top normal for projection. The lungs and pleural spaces are clear. No pneumothorax is seen. The skeletal structures are osteopenic. The bony thorax is grossly intact. IMPRESSION: No acute cardiopulmonary abnormality. Electronically signed by: Omar Adams M.D. 11/05/2017 9:29 AM Dictated Date/Time: 11/05/2017 9:28 AM
== END 2017-11-05 04:53 | disposition home or self-care (01) ==
LOC: C.EDB 01:44 → C.EDA 04:53
DX: M54.12 Radiculopathy, cervical region (principal); R79.1 Abnormal coagulation profile; R03.0 Elevated blood-pressure reading, without diagnosis of hypertension; R73.9 Hyperglycemia, unspecified; F32.9 Major depressive disorder, single episode, unspecified; Z79.01 Long term (current) use of anticoagulants; Z79.84 Long term (current) use of oral hypoglycemic drugs; Z86.711 Personal history of pulmonary embolism; Z82.49 Family history of ischemic heart disease and other diseases of the circulatory system; Z83.3 Family history of diabetes mellitus

== ENCOUNTER 2022-07-28 21:23 | Inpatient (IN) ==
[2022-07-28 22:47] LABS: Basophils # (auto) 0.05 K/uL (0-0.2); Basophils % (auto) 0.4 %; Eosinophils # (auto) 0.33 K/uL (0-0.50); Eosinophils % (auto) 2.8 %; Hematocrit (blood only) 38.7 % (34.1-44.9); Hemoglobin 13.1 g/dl (12.0-16.0); Immature Granulocytes # (auto) 0.04 K/uL (0.00-0.02); Immature Granulocytes % (auto) 0.3 %; Lymphocytes # (auto) 3.08 K/uL (1.2-3.4); Lymphocytes % (auto) 26.6 %; Mean Corpuscular Hemoglobin 30.8 pg (25.0-34.0); Mean Corpuscular Hgb Conc 33.9 g/dL (32.0-36.0); Mean Corpuscular Volume 91.1 fL (80.0-100.0); Monocytes # (auto) 1.27 K/uL (0.24-0.82); Neutrophils # (auto) 6.81 K/uL (1.4-6.5); Neutrophils % (auto) 58.9 %; Platelet Count 265 K/uL (130-400); RDW Coefficient of Variation 12.9 % (11.5-14.5); RDW Standard Deviation 42.4 fL (36.4-46.3); Red Blood Count 4.25 M/uL (3.93-5.22); White Blood Count 11.58 K/ul (4.8-10.8)
[2022-07-28] MEDS ORDERED: HYDROmorphone INJ 0.5 MG/0.5 ML SYR IV STA (22:51)
[2022-07-28] MEDS ORDERED: ONDANSETRON INJ 2 MG/ML 2 ML VIAL IV STA (22:51)
--- NOTE | 2022-07-28 22:51 | Emergency Department Note ---
History of Present Illness General Chief complaint: Head Pain Stated complaint: PAIN ALL AROUND HEAD Time Seen by Provider: 07/28/22 22:41 History of Present Illness Maximum Pain Intensity: 10 This is a 67-year-old female that presents to the emergency department via private vehicle with complaints of "pain all around head". He notes that for almost the past week she has been experiencing discomfort to the scalp region. She initially presented to a clinic and was prescribed an antifungal cream. This did not seem to change or alleviate her symptoms. Then this past Monday she was seen at an urgent care. She was then prescribed Bactrim. She has been compliant with this medication. She notes that despite this her symptoms continue. Patient denies any trauma or injury. She has never had this before. Patient does note low-grade fevers at home. Home Medications Medication Instructions Recorded Confirmed Type aspirin 81 mg tablet,delayed 81 mg PO DAILY 11/19/21 07/28/22 History release (Alexis Low Dose Aspirin) insulin detemir U-100 100 unit/mL 25 unit subcut QPM 11/19/21 07/28/22 History (3 mL) subcutaneous pen (Levemir FlexTouch U-100 Insulin) levothyroxine 150 mcg tablet See Rx Instructions .Route .COMPLEX 11/19/21 07/28/22 History (Synthroid) losartan 25 mg tablet 50 mg PO DAILY 11/19/21 07/28/22 History pantoprazole 20 mg tablet,delayed 20 mg PO DAILY 11/19/21 07/28/22 History release semaglutide 0.25 mg or 0.5 mg (2 1 mg subcut WK 11/19/21 07/28/22 History mg/1.5 mL) subcutaneous pen injector (Ozempic) L.acidophilus,gasseri,rhamnosus-B.bifidum,long 1 cap PO DAILY 07/28/22 07/28/22 History 3 billion cell capsule (Digestive Probiotic) edmtzhc-bbfklgiczynee-yinxqpto 250 1 tab PO DIRECTED PRN Migraine 07/28/22 07/28/22 History mg-250 mg-65 mg tablet (Excedrin Headache Migraine) Allergies Allergy/AdvReac Type Severity Reaction Status Date / Time bee venom protein (honey bee) Allergy Severe Anaphylaxis Verified 07/28/22 22:48 penicillin V Allergy Severe Anaphylaxis Verified 07/28/22 22:48 tetanus toxoid, adsorbed Allergy Severe Anaphylaxis Verified 07/28/22 22:48 adhesive Allergy Intermediate PLASTIC Verified 07/28/22 22:48 TAPE--BLISTERED SKIN sumatriptan Allergy Intermediate chest pain Verified 07/28/22 22:48 cephalexin AdvReac Intermediate ABD Verified 07/28/22 22:48 CRAMPING, DIARRHEA morphine AdvReac Intermediate nausea, Verified 07/28/22 22:48 vomiting. 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 Beliefs That Will Affect Care: None Current Living Situation: Spouse Other Information That Helps Us Care for You: No Feels Safe at Home: Yes Safety Concerns: Feels Safe At This Time Assistive Devices: Contacts and Glasses Review of Systems A total of 10 systems reviewed and were otherwise negative Physical Exam Vital Signs Vital Signs - 24 hr 07/28/22 21:24 07/28/22 23:34 07/29/22 00:54 Temperature 36.8 C Temperature Source Temporal Artery Scan Pulse Rate 83 Pulse Rate [Finger] 75 76 Pulse Rhythm Regular Pulse Strength Normal Respiratory Rate 20 20 20 Respiratory Effort / Characteristics Non-Labored Spontaneous Non-Labored Spontaneous Non-Labored Spontaneous Respiratory Depth Normal Normal Normal Respiratory Pattern Regular Blood Pressure 139/94 Blood Pressure [Right Arm] 125/77 119/74 Blood Pressure Mean 109 Blood Pressure Mean [Right Arm] 93 89 Blood Pressure Position Sitting Pulse Oximetry 96 95 96 Oxygen Delivery Method Room Air Room Air Room Air Sepsis Recent Fever Within 48 Hours No Sepsis New/Unexplained Change in Mental Status N/A Sepsis Action Taken by Nursing No Action Required VITAL SIGNS - Vital signs and nursing notes were reviewed. Stable and afebrile. GENERAL - 67-year-old female appearing her stated age who is in no acute distress. Communicates well with provider and answers questions appropriately. SKIN -overlying the occipital region of the patient's scalp and right lateral parietal scalp region there are raised, erythematous regions concerning for abscess. Centrally in this there are small little pustules that are yellowish in nature. There is no active drainage. These regions are tender to palpation. The occipital region appears to be to coalesced regions whereas the right lateral scalp region appears to be 1. HEAD - NC/AT. EYES - Sclera anicteric. EARS - No deformities of external structures noted on gross examination bilaterally. NOSE - Midline and without cyanosis. No epistaxis or purulent drainage noted. MOUTH/OROPHARYNX - Without perioral cyanosis. NECK - Neck with FROM. No nuchal rigidity. LUNGS - Chest wall symmetric without accessory muscle use, intercostals retractions, or central cyanosis. Normal vesicular breath sounds CTA B/L. No wheezes, rales, or rhonchi appreciated. CARDIAC - RRR with S1/S2. No murmur, rubs, or gallops appreciated. EXTREMITIES - No clubbing or peripheral cyanosis. +5/5 strength noted in UE/LE bilaterally. NEUROLOGIC - Cranial nerves II through XII grossly intact. PSYCH - A&O, and cooperates fully with examiner. Pt is very pleasant and interacts well with examiner. Course Administered Medications Acetaminophen (Acetaminophen 325 Mg Tab) 650 mg PO Q4H PRN PRN Reason: pain/fever Stop: 08/28/22 02:34 Last Admin: 07/29/22 06:08 Dose: 650 mg Documented By: KRISHAN Vancomycin HCl 1,250 mg/ (Sodium Chloride) 525 mls @ 200 mls/hr IV Q18H [facility] Stop: 08/05/22 05:59 Last Admin: 07/29/22 06:01 Dose: 200 mls/hr Documented By: KRISHAN Aztreonam 1,000 mg/ Dextrose 110 mls @ 100 mls/hr IV Q8H [facility]; Protocol Stop: 08/05/22 04:59 Last Infusion: 07/29/22 06:04 Dose: 0 mls/hr Documented By: Admin: 07/29/22 05:00 Dose: 100 mls/hr Documented By: KRISHAN Levothyroxine Sodium (Levothyroxine Sodium 150 Mcg Tablet) 150 mcg PO [id number] [facility] Stop: 08/28/22 06:29 Last Admin: 07/29/22 06:14 Dose: 150 mcg Documented By: KRISHAN Discontinued Medications Hydromorphone HCl (Hydromorphone Inj 0.5 Mg/0.5 Ml Syr) 0.5 mg IV NOW STA Stop: 07/28/22 22:52 Last Admin: 07/28/22 23:08 Dose: 0.5 mg Documented By: OLLIE Hydromorphone HCl (Hydromorphone Inj 0.5 Mg/0.5 Ml Syr) 0.25 mg IV NOW STA Stop: 07/29/22 00:45 Last Admin: 07/29/22 00:52 Dose: 0.25 mg Documented By: OLLIE Vancomycin HCl 1,500 mg/ (Sodium Chloride) 530 mls @ 200 mls/hr IV NOW ONE Stop: 07/29/22 03:24 Last Infusion: 07/29/22 04:25 Dose: 0 mls/hr Documented By: Admin: 07/29/22 01:13 Dose: 200 mls/hr Documented By: OLLIE Lidocaine (Lidocaine/Epineph/Tetracaine 1 Ea Syr) 1 each EXT NOW STA Stop: 07/28/22 22:55 Last Admin: 07/28/22 23:11 Dose: 1 each Documented By: OLLIE Lidocaine HCl (Lidocaine 1% Local 20 Ml Vial) Confirm Administered Dose 20 ml .ROUTE .STK-MED ONE Stop: 07/29/22 00:26 Last Admin: 07/29/22 00:26 Dose: Not Given Documented By: OLLIE Lidocaine HCl (Xylocaine 1%/Sod Bicarb 20 Ml Vial) Confirm Administered Dose 20 ml INFIL .STK-MED ONE Stop: 07/29/22 00:26 Last Admin: 07/29/22 00:40 Dose: 20 ml Documented By: RICKY Ondansetron HCl (Ondansetron Inj 2 Mg/Ml 2 Ml Vial) 4 mg IV NOW STA Stop: 07/28/22 22:52 Last Admin: 07/28/22 23:05 Dose: 4 mg Documented By: OLLIE Medical Decision Making Laboratory Data Result diagrams: 07/28/22 22:13 07/28/22 22:13 Lab Results 07/28/22 07/28/22 07/28/22 Range/Units 22:13 22:13 22:13 WBC 11.58 H (4.8-10.8) K/ul RBC 4.25 (3.93-5.22) M/uL Hgb 13.1 (12.0-16.0) g/dl Hct 38.7 (34.1-44.9) % MCV 91.1 (80.0-100.0) fL MCH 30.8 (25.0-34.0) pg MCHC 33.9 (32.0-36.0) g/dL RDW Std Deviation 42.4 (36.4-46.3) fL RDW Coeff of Lai 12.9 (11.5-14.5) % Plt Count 265 (130-400) K/uL MPV 9.0 L (9.4-12.3) fL Immature Gran % (Auto) 0.3 % Neut % (Auto) 58.9 % Lymph % (Auto) 26.6 % [place] % (Auto) 11.0 % Eos % (Auto) 2.8 % Baso % (Auto) 0.4 % Neut # (Auto) 6.81 H (1.4-6.5) K/uL Lymph # (Auto) 3.08 (1.2-3.4) K/uL Charlotte # (Auto) 1.27 H (0.24-0.82) K/uL Eos # (Auto) 0.33 (0-0.50) K/uL Baso # (Auto) 0.05 (0-0.2) K/uL Immature Gran # (Auto) 0.04 H (0.00-0.02) K/uL Sodium 135 L (136-145) mmol/L Potassium 4.1 (3.5-5.1) mmol/L Chloride 104 (98-107) mmol/L Carbon Dioxide 26 (21-32) mmol/L Anion Gap 5 (3-11) BUN 13 (6-23) mg/dl Creatinine 0.96 (0.6-1.2) mg/dl Est Cr Clr Drug Dosing 52.7 ml/min Est GFR ( Amer) 70.4 ml/min Est GFR (Non-Af Amer) 60.8 ml/min BUN/Creatinine Ratio 13.5 (10-20) Glucose 97 (70-99(Fasting)) mg/dl Lactate (0.4-2.0) mmol/L Calcium 9.3 (8.5-10.1) mg/dl Total Bilirubin 0.3 (0.2-1.0) mg/dl AST 12 L (13-39) U/L ALT 8 (7-52) U/L Alkaline Phosphatase 70 (34-104) U/L Total Protein 7.4 (6.0-8.3) gm/dl Albumin 3.8 (3.4-5.0) gm/dl Globulin 3.6 (2.5-4.0) gm/dl Albumin/Globulin Ratio 1.1 (0.9-2) Procalcitonin < 0.05 (0-0.5) ng/ml SARS-CoV-2, RNA, NAAT (NEGATIVE) 07/28/22 07/29/22 Range/Units 23:04 00:40 WBC (4.8-10.8) K/ul RBC (3.93-5.22) M/uL Hgb (12.0-16.0) g/dl Hct (34.1-44.9) % MCV (80.0-100.0) fL MCH (25.0-34.0) pg MCHC (32.0-36.0) g/dL RDW Std Deviation (36.4-46.3) fL RDW Coeff of Lai (11.5-14.5) % Plt Count (130-400) K/uL MPV (9.4-12.3) fL Immature Gran % (Auto) % Neut % (Auto) % Lymph % (Auto) % [place] % (Auto) % Eos % (Auto) % Baso % (Auto) % Neut # (Auto) (1.4-6.5) K/uL Lymph # (Auto) (1.2-3.4) K/uL [place] # (Auto) (0.24-0.82) K/uL Eos # (Auto) (0-0.50) K/uL Baso # (Auto) (0-0.2) K/uL Immature Gran # (Auto) (0.00-0.02) K/uL Sodium (136-145) mmol/L Potassium (3.5-5.1) mmol/L Chloride (98-107) mmol/L Carbon Dioxide (21-32) mmol/L Anion Gap (3-11) BUN (6-23) mg/dl Creatinine (0.6-1.2) mg/dl Est Cr Clr Drug Dosing ml/min Est GFR ( Amer) ml/min Est GFR (Non-Af Amer) ml/min BUN/Creatinine Ratio (10-20) Glucose (70-99(Fasting)) mg/dl Lactate 0.9 (0.4-2.0) mmol/L Calcium (8.5-10.1) mg/dl Total Bilirubin (0.2-1.0) mg/dl AST (13-39) U/L ALT (7-52) U/L Alkaline Phosphatase (34-104) U/L Total Protein (6.0-8.3) gm/dl Albumin (3.4-5.0) gm/dl Globulin (2.5-4.0) gm/dl Albumin/Globulin Ratio (0.9-2) Procalcitonin (0-0.5) ng/ml SARS-CoV-2, RNA, NAAT NEGATIVE (NEGATIVE) MDM Narrative Patient was seen and evaluated as above in room B11. Review was performed of nursing notes and vital signs. I did review pertinent previous visits and patient history. After obtaining a thorough history and physical examination the above work up was performed. Patient presents to us today for evaluation of discomfort to her scalp. Specifically she has regions that are concerning for infection with induration versus abscess formation. She has already been on antibiotics for about 2 days now with worsening symptoms. Options of care were discussed with the patient. IV access was established. Labs were drawn. Leukocytosis 11.58 noted. No anemia. Hyponatremia mild at 135. No evidence of kidney or liver failure. Procalcitonin is normal. COVID testing negative. At this time it is felt reasonable to attempt I&D of the regions and obtain culture. Consent was obtained after thoroughly discussing benefit versus risk with the patient. Region was sterilely draped and prepped then with iodine. Areas were already anesthetized with some let gel but this did not seem to fully anesthetize the areas. I then further anesthetized the regions each with 1 mL of 1% buffered lidocaine. Patient tolerated this very well. I then utilized 2 different sterile 18-gauge needles 1 for each area to aspirate these regions and no purulence was noted. Small amount of blood from each region noted. Patient overall tolerated this well. I do not believe that large incisions at this time are indicated, rather believe it would be best to trend clinical course with IV antibiotics and if these persist or enlarge then repeat ID can be performed. No purulence to culture at this time. At this time I do believe the patient would benefit from inpatient management. IV vancomycin ordered. Case discussed with the hospitalist. Patient happy with plan of care. Please refer to further documentation regarding her stay. GCS: 15 In the evaluation and treatment of this patient the following differential diagnoses were entertained: Cellulitis, abscess, malignancy, necrotizing fasciitis, contact dermatitis, among others Impression & Plan Cellulitis of scalp Discharge Plan Visit Data Chief Complaint: Head Pain Stated Complaint: PAIN ALL AROUND HEAD ED Provider: Jj Gallagher ED Midlevel Provider: Mike Olivera Discharge Problem: Cellulitis of scalp Patient Disposition: Admitted As Inpatient Condition: Good Discharge Instructions Interventions: ED Discharge Assessment Last Done: 07/29/22 02:13
[2022-07-28] MEDS ORDERED: LIDOCAINE/EPINEPH/TETRACAINE 1 EA SYR EXT STA (22:54)
[2022-07-28 22:55] LABS: Albumin Globulin Ratio 1.1 (0.9-2); Albumin Level 3.8 gm/dl (3.4-5.0); BUN Creatinine Ratio 13.5 (10-20); Bilirubin,Total 0.3 mg/dl (0.2-1.0); Calcium 9.3 mg/dl (8.5-10.1); Creatinine Clr Calc Pharmacy 52.7 ml/min; Est GFR (African American) 70.4 ml/min; Est GFR (Non-African American) 60.8 ml/min; Globulin 3.6 gm/dl (2.5-4.0); Potassium 4.1 mmol/L (3.5-5.1); Total Protein 7.4 gm/dl (6.0-8.3)
[2022-07-29] MEDS ORDERED: XYLOCAINE 1%/SOD BICARB 20 ML VIAL INFIL ONE (00:25)
[2022-07-29] MEDS ORDERED: LIDOCAINE 1% LOCAL 20 ML VIAL ONE (00:25)
[2022-07-29] MEDS ORDERED: HYDROmorphone INJ 0.5 MG/0.5 ML SYR IV STA ×2 (00:44→12:47)
[2022-07-29] MEDS ORDERED: VANCOMYCIN HCL 1,500 MG in SODIUM CHLORIDE 0.9% 500 ML IV ONE (00:46)
[2022-07-29] MEDS ORDERED: VANCOMYCIN CONSULT ACTIVE PRN ×2 (00:46→02:35)
--- NOTE | 2022-07-29 01:30 | History & Physical Report ---
Date of Service July 29, 2022 Assessment & Plan (1) Abscess or cellulitis of scalp: Plan: Failure of outpatient treatment with Bactrim DS She is allergic to penicillins and Keflex Placed on vancomycin IV and aztreonam IV due to history of diabetes mellitus and failure of outpatient treatment If does not respond to this treatment, would recommend biopsy (2) Migraines: Plan: Continue Excedrin Migraine as needed (3) Depression: Plan: On no specific treatment at this time (4) Hypothyroidism: Plan: Continue levothyroxine with dosing noted (5) Diabetes mellitus type 2, noninsulin dependent: Plan: Continue Levemir 25 units subcu every afternoon Placed on Accu-Cheks before meals and at bedtime with NovoLog SSI (6) GERD (gastroesophageal reflux disease): Plan: Continue pantoprazole (7) Hypertension: Plan: Continue losartan History of Present Illness Chief Complaint: The patient reports that she developed severe pain in her scalp, pointing to her occiput and right parietal oh temporal area in particular, worsening over the past 3 days, despite treatment with Bactrim DS twice daily prescribed by her PCP Primary Care Provider: Ara Erwin The patient is a 67-year-old female with a past medical history including breast cancer, migraines, depression, hypothyroidism, diabetes mellitus, major depressive disorder recurrent severe without psychotic features. She presents to the emergency department with failure of outpatient treatment for a painful rash on multiple areas of her scalp. She denies any recent exposures to ticks or other insects. She denies any other sick exposures. Allergies Allergy/AdvReac Type Severity Reaction Status Date / Time bee venom protein (honey bee) Allergy Severe Anaphylaxis Verified 07/28/22 22:48 penicillin V Allergy Severe Anaphylaxis Verified 07/28/22 22:48 tetanus toxoid, adsorbed Allergy Severe Anaphylaxis Verified 07/28/22 22:48 adhesive Allergy Intermediate PLASTIC Verified 07/28/22 22:48 TAPE--BLISTERED SKIN sumatriptan Allergy Intermediate chest pain Verified 07/28/22 22:48 cephalexin AdvReac Intermediate ABD Verified 07/28/22 22:48 CRAMPING, DIARRHEA morphine AdvReac Intermediate nausea, Verified 07/28/22 22:48 vomiting. Home Medications Medication Instructions Recorded Confirmed Type aspirin 81 mg tablet,delayed 81 mg PO DAILY 11/19/21 07/28/22 History release (Alexis Low Dose Aspirin) insulin detemir U-100 100 unit/mL 25 unit subcut QPM 11/19/21 07/28/22 History (3 mL) subcutaneous pen (Levemir FlexTouch U-100 Insulin) levothyroxine 150 mcg tablet See Rx Instructions .Route .COMPLEX 11/19/21 07/28/22 History (Synthroid) losartan 25 mg tablet 50 mg PO DAILY 11/19/21 07/28/22 History pantoprazole 20 mg tablet,delayed 20 mg PO DAILY 11/19/21 07/28/22 History release semaglutide 0.25 mg or 0.5 mg (2 1 mg subcut WK 11/19/21 07/28/22 History mg/1.5 mL) subcutaneous pen injector (Ozempic) L.acidophilus,gasseri,rhamnosus-B.bifidum,long 1 cap PO DAILY 07/28/22 07/28/22 History 3 billion cell capsule (Digestive Probiotic) tkgrmud-iqzkhuzgclmtu-ksrzciub 250 1 tab PO DIRECTED PRN Migraine 07/28/22 07/28/22 History mg-250 mg-65 mg tablet (Excedrin Headache Migraine) Past Med/Surg History Medical History (Updated 07/29/22 @ 04:59 by Tommy Massey MD) Aneurysm, cerebral Depression Diabetes mellitus type 2, noninsulin dependent GERD (gastroesophageal reflux disease) Headache History of breast cancer Hypertension Hypothyroidism Migraines Social History Smoking Status: Never smoker Hx Alcohol Use: No Hx Substance Use: No Preferred Language: Kiswahili Communication Ability: Effective 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 Beliefs That Will Affect Care: None Current Living Situation: Spouse Other Information That Helps Us Care for You: No Feels Safe at Home: Yes Safety Concerns: Feels Safe At This Time Assistive Devices: Contacts and Glasses Review of Systems Review of Systems: The patient denies chest pain, palpitations, shortness of breath, dyspnea on exertion, cough, lower extremity swelling, sore throat, fevers, chills, sweats, weight change, fatigue, nausea, vomiting, diarrhea , constipation, abdominal pain, pelvic pain, blood in urine or stool, dysuria, urinary frequency or urgency, lightheadedness, dizziness, headache, memory loss, loss of consciousness, abnormal bruising or bleeding, imbalance, focal or generalized weakness, numbness or tingling in arms or legs, generalized arthralgias or myalgias, back or neck pain, or night sweats. The review of systems is otherwise negative other than for that already noted above, and at least 10 systems have been reviewed. Physical Exam Physical Exam: The patient is awake, alert and oriented 3, well developed and well nourished, normocephalic and atraumatic, lying in bed and in no acute distress. HEENT--PERRL, EOMI, mucous membranes and oropharynx dry. Neck--supple. No JVD. No bruits. Thyroid normal, trachea midline, no adenopathy. Heart--normal S1 and S2. No murmurs, rubs or gallops. Lungs--clear bilaterally, no respiratory distress, no accessory muscle use. Abdomen--normal bowel sounds and soft. Nontender. Nondistended, no hernias or masses, no organomegaly. Extremities--no cyanosis or clubbing. No edema. There are good distal pulses b/l. Dermatologic--elevated, erythematous, tender approximately 3 cm rash on occiput, and 2 cm on right lateral temporal parietal area. Neurologic--cranial nerves II through XII grossly intact. Rheumatologic--normal range of motion. Psychiatric--normal affect. Results & Data Results & Data ([facility]) Vital Signs (Past 12 Hours) Vital Signs Temp Pulse Pulse Resp BP BP Pulse Ox 07/29/22 00:54 76 20 119/74 96 07/28/22 23:34 75 20 125/77 95 07/28/22 21:24 36.8 C 83 20 139/94 96 O2 Del Method 07/29/22 00:54 Room Air 07/28/22 23:34 Room Air 07/28/22 21:24 Room Air Laboratory Results Laboratory Results WBC 11.58 K/ul (4.8-10.8) H 07/28/22 22:13 RBC 4.25 M/uL (3.93-5.22) 07/28/22 22:13 Hgb 13.1 g/dl (12.0-16.0) 07/28/22 22:13 Hct 38.7 % (34.1-44.9) 07/28/22 22:13 MCV 91.1 fL (80.0-100.0) 07/28/22 22:13 MCH 30.8 pg (25.0-34.0) 07/28/22 22:13 MCHC 33.9 g/dL (32.0-36.0) 07/28/22 22:13 RDW Std Deviation 42.4 fL (36.4-46.3) 07/28/22 22:13 RDW Coeff of Lai 12.9 % (11.5-14.5) 07/28/22 22:13 Plt Count 265 K/uL (130-400) 07/28/22 22:13 MPV 9.0 fL (9.4-12.3) L 07/28/22 22:13 Immature Gran % (Auto) 0.3 % 07/28/22 22:13 Neut % (Auto) 58.9 % 07/28/22 22:13 Lymph % (Auto) 26.6 % 07/28/22 22:13 Casey % (Auto) 11.0 % 07/28/22 22:13 Eos % (Auto) 2.8 % 07/28/22 22:13 Baso % (Auto) 0.4 % 07/28/22 22:13 Neut # (Auto) 6.81 K/uL (1.4-6.5) H 07/28/22 22:13 Lymph # (Auto) 3.08 K/uL (1.2-3.4) 07/28/22 22:13 Casey # (Auto) 1.27 K/uL (0.24-0.82) H 07/28/22 22:13 Eos # (Auto) 0.33 K/uL (0-0.50) 07/28/22 22:13 Baso # (Auto) 0.05 K/uL (0-0.2) 07/28/22 22:13 Immature Gran # (Auto) 0.04 K/uL (0.00-0.02) H 07/28/22 22:13 Sodium 135 mmol/L (136-145) L 07/28/22 22:13 Potassium 4.1 mmol/L (3.5-5.1) 07/28/22 22:13 Chloride 104 mmol/L (98-107) 07/28/22 22:13 Carbon Dioxide 26 mmol/L (21-32) 07/28/22 22:13 Anion Gap 5 (3-11) 07/28/22 22:13 BUN 13 mg/dl (6-23) 07/28/22 22:13 Creatinine 0.96 mg/dl (0.6-1.2) 07/28/22 22:13 Est Cr Clr Drug Dosing 52.7 ml/min 07/28/22 22:13 Est GFR ( Amer) 70.4 ml/min 07/28/22 22:13 Est GFR (Non-Af Amer) 60.8 ml/min 07/28/22 22:13 BUN/Creatinine Ratio 13.5 (10-20) 07/28/22 22:13 Glucose 97 mg/dl (70-99(Fasting)) 07/28/22 22:13 Lactate 0.9 mmol/L (0.4-2.0) 07/28/22 23:04 Calcium 9.3 mg/dl (8.5-10.1) 07/28/22 22:13 Total Bilirubin 0.3 mg/dl (0.2-1.0) 07/28/22 22:13 AST 12 U/L (13-39) L 07/28/22 22:13 ALT 8 U/L (7-52) 07/28/22 22:13 Alkaline Phosphatase 70 U/L (34-104) 07/28/22 22:13 Total Protein 7.4 gm/dl (6.0-8.3) 07/28/22 22:13 Albumin 3.8 gm/dl (3.4-5.0) 07/28/22 22:13 Globulin 3.6 gm/dl (2.5-4.0) 07/28/22 22:13 Albumin/Globulin Ratio 1.1 (0.9-2) 07/28/22 22:13 Procalcitonin < 0.05 ng/ml (0-0.5) 07/28/22 22:13 SARS-CoV-2, RNA, NAAT NEGATIVE (NEGATIVE) 07/29/22 00:40 Code Status & VTE Plan Code Status Full code VTE Prophylaxis Plan VTE Prophylaxis will be ordered: Yes (1) Hypertension Hypertension type: primary hypertension Qualified Code(s): I10 - Essential (primary) hypertension
[2022-07-29] MEDS ORDERED: GLUCOSE 40% GEL 15 GM TUBE PO PRN (02:35)
[2022-07-29] MEDS ORDERED: NON-FORMULARY MEDICATION (Aspirin-Acetaminophen-Caffeine [Excedrin Migraine] 250-250-65 mg PO PRN (02:35)
[2022-07-29] MEDS ORDERED: DEXTROSE 50% 50 ML SYRINGE IV PRN (02:35)
[2022-07-29] MEDS ORDERED: GLUCOSE 10 TAB/TUBE PO PRN (02:35)
[2022-07-29] MEDS ORDERED: GLUCAGON FOR INJ 1 MG VIAL SQ PRN (02:35)
[2022-07-29] MEDS ORDERED: CARBOHYDRATES FOR HYPOGLYCEMIA PO PRN (02:35)
[2022-07-29] MEDS: AZTREONAM 1,000 MG in DEXTROSE 5% 100 ML IV SCH ×3 (05:00→21:05)
--- NOTE | 2022-07-29 05:00 | Billing Data ---
Date of Service July 29, 2022 Coding Level of Care Code 38266 Initial Inpt Care Lvl 3
[2022-07-29] MEDS: VANCOMYCIN HCL 1,250 MG in SODIUM CHLORIDE 0.9% 500 ML IV SCH (06:01)
[2022-07-29] MEDS: ACETAMINOPHEN 325 MG TAB PO PRN ×2 (06:08→17:15)
[2022-07-29] MEDS: LEVOTHYROXINE SODIUM 150 MCG TABLET PO SCH (06:14)
[2022-07-29 07:49] LABS: Estimated Average Glucose 137 mg/dl; Hemoglobin A1C 6.4 % (4.5-5.6)
--- NOTE | 2022-07-29 08:24 | Hospitalist Progress Note ---
Date of Service July 29, 2022 Assessment & Plan Admission and Anticipated Discharge Date Admission Date: July 29, 2022 Subjective BRIDGE: ADMIT AFTER MIDNIGHT +painful this morning per nursing - given Dilaudid in ER, switched to Tylenol on the floor Had been on Bactrim x 3 days outpatient Seen by 2 urgent care outpatient, given cream first time w/ betamethasone/clotrimazole, then by second urgent care w/ Bactrim 2 double strength tablets twice daily. Had not gotten significantly better/worse since treatment. Started out initially dry skin/scalp, had taken something for itching at home. Rating pain 8/10, not relieved with PO medication. Using heating pads without drainage. had been taking Tylenol/ibuprofen at home without relief, also tried Excedrin migraine as well. Has a little bit of a headache, no visual changes. Had attempts at drainage in ER w/ needle, no drainage for cultures obtained. Discussed attempting to consult dermatology if able to come in. Results & Data Results & Data ([facility]) Vital Signs (Past 12 Hours) Vital Signs Temp Pulse Pulse Resp BP BP Pulse Ox 07/29/22 02:35 36.5 C 68 16 131/82 97 07/29/22 02:07 74 20 121/74 97 07/29/22 00:54 76 20 119/74 96 07/28/22 23:34 75 20 125/77 95 07/28/22 21:24 36.8 C 83 20 139/94 96 O2 Del Method 07/29/22 02:35 Room Air 07/29/22 02:07 Room Air 07/29/22 00:54 Room Air 07/28/22 23:34 Room Air 07/28/22 21:24 Room Air Laboratory Results 07/29/22 07/29/22 07/28/22 Range/Units 05:28 00:40 23:04 WBC (4.8-10.8) K/ul RBC (3.93-5.22) M/uL Hgb (12.0-16.0) g/dl Hct (34.1-44.9) % MCV (80.0-100.0) fL MCH (25.0-34.0) pg MCHC (32.0-36.0) g/dL RDW Std Deviation (36.4-46.3) fL RDW Coeff of Lai (11.5-14.5) % Plt Count (130-400) K/uL MPV (9.4-12.3) fL Immature Gran % (Auto) % Neut % (Auto) % Lymph % (Auto) % [place] % (Auto) % Eos % (Auto) % Baso % (Auto) % Neut # (Auto) (1.4-6.5) K/uL Lymph # (Auto) (1.2-3.4) K/uL [place] # (Auto) (0.24-0.82) K/uL Eos # (Auto) (0-0.50) K/uL Baso # (Auto) (0-0.2) K/uL Immature Gran # (Auto) (0.00-0.02) K/uL Sodium (136-145) mmol/L Potassium (3.5-5.1) mmol/L Chloride (98-107) mmol/L Carbon Dioxide (21-32) mmol/L Anion Gap (3-11) BUN (6-23) mg/dl Creatinine (0.6-1.2) mg/dl Est Cr Clr Drug Dosing ml/min Est GFR ( Amer) ml/min Est GFR (Non-Af Amer) ml/min BUN/Creatinine Ratio (10-20) Glucose (70-99(Fasting)) mg/dl Estimat Average Glucose 137 mg/dl Hemoglobin A1c 6.4 H (4.5-5.6) % Lactate 0.9 (0.4-2.0) mmol/L Calcium (8.5-10.1) mg/dl Total Bilirubin (0.2-1.0) mg/dl AST (13-39) U/L ALT (7-52) U/L Alkaline Phosphatase (34-104) U/L Total Protein (6.0-8.3) gm/dl Albumin (3.4-5.0) gm/dl Globulin (2.5-4.0) gm/dl Albumin/Globulin Ratio (0.9-2) Procalcitonin (0-0.5) ng/ml SARS-CoV-2, RNA, NAAT NEGATIVE (NEGATIVE) 07/28/22 07/28/22 07/28/22 Range/Units 22:13 22:13 22:13 WBC 11.58 H (4.8-10.8) K/ul RBC 4.25 (3.93-5.22) M/uL Hgb 13.1 (12.0-16.0) g/dl Hct 38.7 (34.1-44.9) % MCV 91.1 (80.0-100.0) fL MCH 30.8 (25.0-34.0) pg MCHC 33.9 (32.0-36.0) g/dL RDW Std Deviation 42.4 (36.4-46.3) fL RDW Coeff of Lai 12.9 (11.5-14.5) % Plt Count 265 (130-400) K/uL MPV 9.0 L (9.4-12.3) fL Immature Gran % (Auto) 0.3 % Neut % (Auto) 58.9 % Lymph % (Auto) 26.6 % [place] % (Auto) 11.0 % Eos % (Auto) 2.8 % Baso % (Auto) 0.4 % Neut # (Auto) 6.81 H (1.4-6.5) K/uL Lymph # (Auto) 3.08 (1.2-3.4) K/uL [place] # (Auto) 1.27 H (0.24-0.82) K/uL Eos # (Auto) 0.33 (0-0.50) K/uL Baso # (Auto) 0.05 (0-0.2) K/uL Immature Gran # (Auto) 0.04 H (0.00-0.02) K/uL Sodium 135 L (136-145) mmol/L Potassium 4.1 (3.5-5.1) mmol/L Chloride 104 (98-107) mmol/L Carbon Dioxide 26 (21-32) mmol/L Anion Gap 5 (3-11) BUN 13 (6-23) mg/dl Creatinine 0.96 (0.6-1.2) mg/dl Est Cr Clr Drug Dosing 52.7 ml/min Est GFR ( Amer) 70.4 ml/min Est GFR (Non-Af Amer) 60.8 ml/min BUN/Creatinine Ratio 13.5 (10-20) Glucose 97 (70-99(Fasting)) mg/dl Estimat Average Glucose mg/dl Hemoglobin A1c (4.5-5.6) % Lactate (0.4-2.0) mmol/L Calcium 9.3 (8.5-10.1) mg/dl Total Bilirubin 0.3 (0.2-1.0) mg/dl AST 12 L (13-39) U/L ALT 8 (7-52) U/L Alkaline Phosphatase 70 (34-104) U/L Total Protein 7.4 (6.0-8.3) gm/dl Albumin 3.8 (3.4-5.0) gm/dl Globulin 3.6 (2.5-4.0) gm/dl Albumin/Globulin Ratio 1.1 (0.9-2) Procalcitonin < 0.05 (0-0.5) ng/ml SARS-CoV-2, RNA, NAAT (NEGATIVE) PG Care Time/CCT Total # of Minutes Spent Total Time Spent with Patient: Total time spent is greater than 50% in coordination of care (as documented) at patient's floor/unit and/or counseling patient: Coding
[2022-07-29] MEDS: INSULIN ASPART PER UNIT SC SCH ×4 (09:26→21:15)
[2022-07-29] MEDS: PANTOprazole 40 MG TAB PO SCH (09:27)
[2022-07-29] MEDS: ASPIRIN 81 MG ECTAB PO SCH (09:27)
[2022-07-29] MEDS: ADVANCED PROBIOTIC 1250 MG CAPSULE PO SCH (09:28)
[2022-07-29] MEDS: LOSARTAN POTASSIUM 50 MG TAB PO SCH (09:28)
[2022-07-29] MEDS: oxyCODONE HCL IR 5 MG TAB (IMMEDIATE RELEASE) PO PRN ×3 (09:34→21:04)
[2022-07-29] MEDS: ONDANSETRON INJ 2 MG/ML 2 ML VIAL IV PRN (09:35)
--- NOTE | 2022-07-29 12:41 | Pharmacy Report ---
Pharmacy PK ABX Note - Date of Service July 29, 2022 - Assessment and Plan Assessment 67 year old F receiving vancomycin and aztreonam for treatment of scalp abscess (failed Bactrim PO X 3 days as outpatient). Pertinent microbiologic data includes: bcx pending, now wound cxs at this time. Day # 1 of antimicrobial therapy. Plan Vancomycin * Loading dose: 1500 mg IV x 1 administered this morning @ ~0100 * Maintenance dose: 1250 mg IV every 18 hours started today @ 0600 * Regimen is predicted to achieve target AUC/MISHA of 400-600 mg/L.hr * Random level ordered for: 07/31/22 with AM labs Pharmacy will continue to follow and will adjust dose/frequency as necessary. Thank you. Pharmacy has transitioned to AUC monitoring for vancomycin. AUC/MISHA is the preferred PK/PD target and is associated with decreased risk of nephrotoxicity compared to traditional trough targets.
[2022-07-29 14:37] LABS: Basophils # (auto) 0.08 K/uL (0-0.2); Basophils % (auto) 0.8 %; Eosinophils # (auto) 0.49 K/uL (0-0.50); Eosinophils % (auto) 4.9 %; Hemoglobin 12.1 g/dl (12.0-16.0); Immature Granulocytes # (auto) 0.04 K/uL (0.00-0.02); Immature Granulocytes % (auto) 0.4 %; Lymphocytes % (auto) 21.9 %; Mean Corpuscular Hemoglobin 30.8 pg (25.0-34.0); Mean Corpuscular Hgb Conc 33.6 g/dL (32.0-36.0); Mean Corpuscular Volume 91.6 fL (80.0-100.0); Mean Platelet Volume 8.7 fL (9.4-12.3); Monocytes # (auto) 0.95 K/uL (0.24-0.82); Monocytes % (auto) 9.4 %; Neutrophils % (auto) 62.6 %; Platelet Count 245 K/uL (130-400); RDW Coefficient of Variation 12.9 % (11.5-14.5); RDW Standard Deviation 42.9 fL (36.4-46.3); Red Blood Count 3.93 M/uL (3.93-5.22); White Blood Count 10.06 K/ul (4.8-10.8)
[2022-07-29 14:55] LABS: Calcium 8.8 mg/dl (8.5-10.1); Creatinine Clr Calc Pharmacy 54.9 ml/min; Est GFR (African American) 73.2 ml/min; Est GFR (Non-African American) 63.1 ml/min; Potassium 4.3 mmol/L (3.5-5.1)
--- NOTE | 2022-07-29 15:42 | History & Physical Bridge Note ---
Date of Service July 29, 2022 History & Physical Bridge Note I have examined the patient, reviewed the History & Physical and in the interval since the performance of the History & Physical I have noted the following changes of clinical significance: no changes noted BRIDGE: ADMITTED AFTER MIDNIGHT +painful this morning per nursing - given Dilaudid in ER, switched to Tylenol on the floor Had been on Bactrim x 3 days outpatient -- states rash had started about 2 weeks ago, making reaction to Bactrim less likely Patient denies any new shampoo/conditioner. Does note issues with dry scalp at baseline. Seen by 2 urgent care outpatient, given cream first time w/ betamethasone/clotrimazole, then by second urgent care w/ Bactrim 2 double strength tablets twice daily. Had not gotten significantly better/worse since treatment. Started out initially dry skin/scalp, had taken something for itching at home. Rating pain 8/10, not relieved with PO medication. Using heating pads without drainage. Reports had been taking Tylenol/ibuprofen at home without relief, also tried Excedrin migraine as well. Has a little bit of a headache due to the pain, at site of abscesses, no visual changes. Had attempts at drainage in ER w/ needle, no drainage for cultures obtained. Discussed attempting to consult dermatology if able to come in -- possible folliculitis vs abscess (2 larger abscess/fluctuant to R temporal/parietal region and occiput, does have smaller dried skin areas on the left (reportedly what the others started out as). No expressable material, does have dried blood/possible yellow drainage on hairs , dry No shingles given crosses midline. Of note, does have hx breast ca Plan Remains on Vanco/Aztreonam for now WBC 11.5k --> 10k, L shift resolved Remains afebrile (although reported temp ~100F outpatient [employer]) Pain control, antiemetics prn-- had been using tylenol/ibuprofen without relief, requiring IV pain medication for breakthrough. Encouraged PO use/limit IV Blood cultures pending Culture if drains/able to obtain -- attempted in ER w/o effectiveness Pending improvement with IV abx/pain control, consider Keflex/Doxycycline (anaphylaxis reported to penicillin, but abd cramping/diarrhea for cephalexin) at discharge and follow-up with Dermatology (consulted inpatient, likely wouldn't be seen until Monday though). Supervising Physician Co-Signing Physician Notes I personally saw and examined the patient. I verified all moura points and agree with Nae Cm PA-C with the following exceptions and/or additions: Patient seen and examined. Appears to be consistent with Kerion. Before committing patient to 6 weeks of terbinafine or alternative antifungal consider ID consult if dermatology not available over weekend for confirmation. Will place surgery consult as fluctuence noted and suspect some fluid can be drained with scalpel rather than needle aspiration but will defer to surgery.
[2022-07-29] MEDS: HYDROmorphone INJ 0.5 MG/0.5 ML SYR IV PRN (17:33)
[2022-07-29] MEDS: LIDOCAINE 4% CREAM 15 GM TUBE EXT PRN (17:40)
[2022-07-29] MEDS: LANTUS PER UNIT CHARGE SQ SCH (21:14)
[2022-07-30] MEDS: HYDROmorphone INJ 0.5 MG/0.5 ML SYR IV PRN ×2 (00:11→08:52)
[2022-07-30] MEDS: VANCOMYCIN HCL 1,250 MG in SODIUM CHLORIDE 0.9% 500 ML IV SCH ×2 (00:12→18:38)
[2022-07-30] MEDS: ONDANSETRON INJ 2 MG/ML 2 ML VIAL IV PRN (00:16)
[2022-07-30] MEDS: LIDOCAINE 4% CREAM 15 GM TUBE EXT PRN ×3 (01:48→22:06)
[2022-07-30] MEDS: AZTREONAM 1,000 MG in DEXTROSE 5% 100 ML IV SCH ×3 (05:48→21:57)
[2022-07-30] MEDS: LEVOTHYROXINE SODIUM 150 MCG TABLET PO SCH (05:51)
[2022-07-30] MEDS: oxyCODONE HCL IR 5 MG TAB (IMMEDIATE RELEASE) PO PRN ×3 (05:53→22:04)
[2022-07-30 07:03] LABS: Basophils # (auto) 0.08 K/uL (0-0.2); Basophils % (auto) 0.7 %; Eosinophils # (auto) 0.49 K/uL (0-0.50); Eosinophils % (auto) 4.2 %; Hemoglobin 12.6 g/dl (12.0-16.0); Immature Granulocytes # (auto) 0.04 K/uL (0.00-0.02); Immature Granulocytes % (auto) 0.3 %; Lymphocytes # (auto) 2.16 K/uL (1.2-3.4); Lymphocytes % (auto) 18.4 %; Mean Corpuscular Hemoglobin 30.1 pg (25.0-34.0); Mean Corpuscular Hgb Conc 33.2 g/dL (32.0-36.0); Mean Corpuscular Volume 90.9 fL (80.0-100.0); Mean Platelet Volume 8.8 fL (9.4-12.3); Monocytes # (auto) 1.13 K/uL (0.24-0.82); Monocytes % (auto) 9.6 %; Neutrophils # (auto) 7.85 K/uL (1.4-6.5); Neutrophils % (auto) 66.8 %; Platelet Count 250 K/uL (130-400); RDW Coefficient of Variation 12.7 % (11.5-14.5); RDW Standard Deviation 42.4 fL (36.4-46.3); Red Blood Count 4.18 M/uL (3.93-5.22); White Blood Count 11.75 K/ul (4.8-10.8)
[2022-07-30 07:26] LABS: BUN Creatinine Ratio 17.3 (10-20); Est GFR (African American) 86.5 ml/min; Est GFR (Non-African American) 74.6 ml/min; Potassium 4.1 mmol/L (3.5-5.1)
[2022-07-30] MEDS: ASPIRIN 81 MG ECTAB PO SCH (08:39)
[2022-07-30] MEDS: LOSARTAN POTASSIUM 50 MG TAB PO SCH (08:39)
[2022-07-30] MEDS: PANTOprazole 40 MG TAB PO SCH (08:40)
[2022-07-30] MEDS: INSULIN ASPART PER UNIT SC SCH ×4 (08:40→21:48)
[2022-07-30] MEDS: ADVANCED PROBIOTIC 1250 MG CAPSULE PO SCH (08:40)
--- NOTE | 2022-07-30 12:16 | Surgery Consultation ---
Date of Consultation July 30, 2022 Assessment & Plan (1) Abscess or cellulitis of scalp: NPO past MN will biopsy and drain in OR tomorrow History of Present Illness Attending Physician: Guzman Navarro History of Present Illness The patient was admitted with failure of outpatient treatment of two scalp lesions with fluid collections. She reports that she developed severe pain in her scalp, pointing to her occiput and right parietal/temporal area in particular, worsening over the past 3 days, despite treatment with Bactrim DS twice daily. Allergies Allergy/AdvReac Type Severity Reaction Status Date / Time bee venom protein (honey bee) Allergy Severe Anaphylaxis Verified 07/28/22 22:48 penicillin V Allergy Severe Anaphylaxis Verified 07/28/22 22:48 tetanus toxoid, adsorbed Allergy Severe Anaphylaxis Verified 07/28/22 22:48 adhesive Allergy Intermediate PLASTIC Verified 07/28/22 22:48 TAPE--BLISTERED SKIN sumatriptan Allergy Intermediate chest pain Verified 07/28/22 22:48 cephalexin AdvReac Intermediate ABD Verified 07/28/22 22:48 CRAMPING, DIARRHEA morphine AdvReac Intermediate nausea, Verified 07/28/22 22:48 vomiting. Home Medications Medication Instructions Recorded Confirmed Type aspirin 81 mg tablet,delayed 81 mg PO DAILY 11/19/21 07/28/22 History release (Alexis Low Dose Aspirin) insulin detemir U-100 100 unit/mL 25 unit subcut QPM 11/19/21 07/28/22 History (3 mL) subcutaneous pen (Levemir FlexTouch U-100 Insulin) levothyroxine 150 mcg tablet See Rx Instructions .Route .COMPLEX 11/19/21 07/28/22 History (Synthroid) losartan 25 mg tablet 50 mg PO DAILY 11/19/21 07/28/22 History pantoprazole 20 mg tablet,delayed 20 mg PO DAILY 11/19/21 07/28/22 History release semaglutide 0.25 mg or 0.5 mg (2 1 mg subcut WK 11/19/21 07/28/22 History mg/1.5 mL) subcutaneous pen injector (Ozempic) L.acidophilus,gasseri,rhamnosus-B.bifidum,long 1 cap PO DAILY 07/28/22 07/28/22 History 3 billion cell capsule (Digestive Probiotic) [id number]-gnkkwqmt 250 1 tab PO DIRECTED PRN Migraine 07/28/22 07/28/22 History mg-250 mg-65 mg tablet (Excedrin Headache Migraine) Patient History Medical History Aneurysm, cerebral Depression Diabetes mellitus type 2, noninsulin dependent GERD (gastroesophageal reflux disease) Headache History of breast cancer Hypertension Hypothyroidism Migraines Social History Smoking Status: Never smoker Hx Alcohol Use: No Hx Substance Use: No Preferred Language: Mauritian Communication Ability: Effective Home Health Speech Therapist Required: No Beliefs That Will Affect Care: None Current Living Situation: Spouse Other Information That Helps Us Care for You: No Feels Safe at Home: Yes Safety Concerns: Feels Safe At This Time Assistive Devices: None Review of Systems Constitutional: + fever; no chills, no body aches and no fatigue Eyes: no problem reported Ear, Nose, Mouth, Throat: no problem reported Gastrointestinal: no abdominal pain Genitourinary: no dysuria Musculoskeletal: no back pain, no neck pain and no joint pain Integumentary: + lesions Neurologic: no localized weakness and no generalized weakness Psychiatric: no behavioral changes Physical Exam Constitutional: WD/WN, vitals as above Eyes: PERRL, conjunctivae normal, anicteric sclerae ENMT: external ear and nose normal, oropharynx normal Neck: trachea midline Respiratory: normal respiratory effort, lungs clear to auscultation Cardiovascular: RRR, no murmur, no edema Gastrointestinal (Abdomen): Inspection/Auscultation: abdomen normal to inspection and normal bowel sounds; abdomen not distended Percussion/Palpation: abdomen soft; abdomen nontender Musculoskeletal: Head/Neck/Chest: + head abnormal to inspection (scalp lesions X2 with fluctuance) and normocephalic Skin: no rashes, warm and dry Psychiatric: Orientation: alert and oriented x 3 Results & Data ([facility]) Vital Signs (Past 12 Hours) Vital Signs Temp Pulse Resp BP Pulse Ox O2 Del Method 07/30/22 07:22 36.4 C L 84 16 104/74 92 Room Air
[2022-07-30] MEDS: ACETAMINOPHEN 325 MG TAB PO PRN (12:29)
--- NOTE | 2022-07-30 12:36 | Hospitalist Progress Note ---
Date of Service July 30, 2022 Assessment & Plan (1) Abscess or cellulitis of scalp: Plan: - Concern that this may be fungal (kerion) - Failed Bactrim DS and topical steroids as outpatient - Placed empirically on IV abx including Vanco and Aztreonam (d/t multiple abx allergies) - General surgery as well as dermatology consulted, appreciate assistance - GS to arrange for biopsy in OR tomorrow 07/31 - NPO after MN in preparation for OR - May require 6-week course of antifungals --> Terbinafine or alternative (2) Migraines: Plan: - Uses OTC Excedrin Migraine PRN (3) Depression: Plan: - On no specific meds for this (4) Hypothyroidism: Plan: - Continue Synthroid (5) Diabetes mellitus type 2, noninsulin dependent: Plan: - Continue Levemir and log - Accuchecks AC and HS - CC diet (6) GERD (gastroesophageal reflux disease): Plan: - PPI (7) Hypertension: Plan: - Well controlled on Losartan Plan Above plan d/w Dr. Navarro. Continue abx for now, plan for OR biopsy tomorrow. Admission and Anticipated Discharge Date Admission Date: July 29, 2022 Subjective Patient seen on daily rounds this morning. She reports that the burning/throbbing pain from the spots on her scalp are still quite bothersome. She denies fever/chills. She is waiting on eval from general surgery at the time of my visit. Review of Systems Review of Systems: All systems reviewed and are unremarkable except as noted in HPI and below. Denies fever, chills, fatigue, headache, nasal congestion, sore throat, cough, chest pain, shortness of breath, palpitations, orthopnea, PND, abdominal pain, n/v/d, constipation, dysuria, hematuria, frequency, back pain, joint pain or swelling, easy bruising or bleeding. Physical Exam Physical Exam: GENERAL: 67 yo Well-developed, well-nourished WF. NAD. LUNGS: Clear to auscultation bilaterally. No W/R/R. CARDIOVASCULAR: Regular rate and rhythm. ABDOMEN: Soft, non-tender and non-distended. BS normoactive x 4 quad. EXTREMITIES: No edema. Non-tender. Peripheral pulses +2/4. NEUROLOGIC: A&O x3. PSYCHIATRIC: Cooperative. Appropriate mood and affect. SKIN: Warm, dry, intact. Two areas of fluctuance noted on scalp, one on posterior aspect of top of scalp (occiput region) and one on the lateral right aspect (R temporal). Some purulent drainage noted from the top lesion which is also larger in size. Both quite tender to palpation. Results & Data Results & Data ([facility]) Vital Signs (Past 12 Hours) Vital Signs Temp Pulse Resp BP Pulse Ox O2 Del Method 07/30/22 07:22 36.4 C L 84 16 104/74 92 Room Air Laboratory Results 07/30/22 06:40 07/30/22 06:40 PG Care Time/CCT Total # of Minutes Spent Total Time Spent with Patient: Total time spent is greater than 50% in coordination of care (as documented) at patient's floor/unit and/or counseling patient: Coding Level of Care Code 90026 Subseq Hosp Care Lvl 2 Diagnoses Abscess or cellulitis of scalp L03.811 Migraines G43.909 Depression F32.9 Hypothyroidism E03.9 Diabetes mellitus type 2, noninsulin dependent E11.9 GERD (gastroesophageal reflux disease) K21.9 Hypertension I10 Hypertension type: primary hypertension (1) Hypertension Hypertension type: primary hypertension Qualified Code(s): I10 - Essential (primary) hypertension
--- NOTE | 2022-07-30 12:58 | Anesthesiology Consultation ---
Date of Service July 30, 2022 Assessment & Plan Chart Review Chart Review: Acceptable Risk for Surgery Consults Requested none ASA ASA3 Proposed Anesthesia Anesthesia Type: General Risk / Benefits Reviewed With: PT / POA / Parent / Guardian, Accepts Plan and Informed Consent Obtained History Surgery Operation Date: 07/31/22 07:30 Proposed Procedures p Excision, Drainage, and Biopsy of Right Scalp lesions times two or three - Da Ching MD Height/Weight Height: 5 ft 0.5 in Weight: 80.2 kg Allergies Allergy/AdvReac Type Severity Reaction Status Date / Time bee venom protein (honey bee) Allergy Severe Anaphylaxis Verified 07/28/22 22:48 penicillin V Allergy Severe Anaphylaxis Verified 07/28/22 22:48 tetanus toxoid, adsorbed Allergy Severe Anaphylaxis Verified 07/28/22 22:48 adhesive Allergy Intermediate PLASTIC Verified 07/28/22 22:48 TAPE--BLISTERED SKIN sumatriptan Allergy Intermediate chest pain Verified 07/28/22 22:48 cephalexin AdvReac Intermediate ABD Verified 07/28/22 22:48 CRAMPING, DIARRHEA morphine AdvReac Intermediate nausea, Verified 07/28/22 22:48 vomiting. Medications Home Medications Medication Instructions Recorded Confirmed Last Taken aspirin 81 mg tablet,delayed 81 mg PO DAILY 11/19/21 07/28/22 07/28/22 release (Alexis Low Dose Aspirin) insulin detemir U-100 100 unit/mL 25 unit subcut QPM 11/19/21 07/28/22 07/28/22 (3 mL) subcutaneous pen (Levemir FlexTouch U-100 Insulin) levothyroxine 150 mcg tablet See Rx Instructions .Route .COMPLEX 11/19/21 07/28/22 07/28/22 (Synthroid) 225 MCG losartan 25 mg tablet 50 mg PO DAILY 11/19/21 07/28/22 07/28/22 pantoprazole 20 mg tablet,delayed 20 mg PO DAILY 11/19/21 07/28/22 07/28/22 release semaglutide 0.25 mg or 0.5 mg (2 1 mg subcut WK 11/19/21 07/28/22 07/26/22 mg/1.5 mL) subcutaneous pen injector (Ozempic) L.acidophilus,gasseri,rhamnosus-B.bifidum,long 1 cap PO DAILY 1107/28/22 07/28/22 3 billion cell capsule (Digestive Probiotic) jtrexoa-foazrckffmydd-jepuhwli 250 1 tab PO DIRECTED PRN Migraine 07/28/22 07/28/22 Unknown mg-250 mg-65 mg tablet (Excedrin Headache Migraine) Active Medications Generic Name Dose Route Start Last Admin Trade Name Freq PRN Reason Stop Dose Admin Acetaminophen 650 mg 07/29/22 02:35 07/30/22 12:29 Acetaminophen 325 Mg Tab PO 08/28/22 02:34 650 mg Q4H PRN Administration pain/fever Aspirin 81 mg 07/29/22 09:00 07/30/22 08:39 Aspirin 81 Mg Ectab PO 08/28/22 08:59 81 mg DAILY MAT Administration Vancomycin HCl 1,250 mg/ 525 mls @ 200 mls/hr 07/29/22 06:00 07/30/22 02:55 Sodium Chloride IV 08/05/22 05:59 Infused Q18H MAT Infusion Aztreonam 1,000 mg/ Dextrose 110 mls @ 100 mls/hr 07/29/22 05:00 07/30/22 12:30 IV 08/05/22 04:59 100 mls/hr Q8H MAT Administration Protocol Insulin Aspart 0 units 07/29/22 07:30 07/30/22 12:23 Insulin Aspart Per Unit SC 08/28/22 07:29 5 units ACHS MAT Administration Insulin Glargine 25 units 07/29/22 21:00 07/29/22 21:14 Lantus Per Unit Charge SQ 08/28/22 20:59 25 units QPM MAT Administration Lactobacillus Acidophilus 2 cap 07/29/22 09:00 07/30/22 08:40 Advanced Probiotic 1250 Mg Capsule PO 08/28/22 08:59 2 cap DAILY MAT Administration Levothyroxine Sodium 150 mcg 07/29/22 06:30 07/30/22 05:51 Levothyroxine Sodium 150 Mcg Tablet PO 08/28/22 06:29 150 mcg [id number] MAT Administration Lidocaine 1 appln 07/29/22 17:16 07/30/22 12:22 Lidocaine 4% Cream 15 Gm Tube EXT 08/28/22 17:15 1 appln TID PRN Administration pain or burning to head Losartan Potassium 50 mg 07/29/22 09:00 07/30/22 08:39 Losartan Potassium 50 Mg Tab PO 08/28/22 08:59 50 mg DAILY MAT Administration Ondansetron HCl 4 mg 07/29/22 02:35 07/30/22 00:16 Ondansetron Inj 2 Mg/Ml 2 Ml Vial IV 08/28/22 02:34 4 mg Q6H PRN Administration Nausea Pantoprazole Sodium 40 mg 07/29/22 09:00 07/30/22 08:40 Pantoprazole 40 Mg Tab PO 08/28/22 08:59 40 mg DAILY MAT Administration NPO Date Last Intake of Fluids: 07/30/22 Time Last Intake of Fluids: 23:59 Date Last Intake of Solids: 07/30/22 Time Last Intake of Solids: 23:59 Past Medical History Medical History (Updated 07/30/22 @ 12:56 by Razia Gonzalez DO) Aneurysm, cerebral 04/21/22 stable 2 mm right supraclinoid aneurysm Asthma (06/14/13) Depression Diabetes mellitus type 2, noninsulin dependent GERD (gastroesophageal reflux disease) Headache History of breast cancer Hypertension Hypothyroidism Migraines Exercise / Class Metabolic Activity II 4-5 Yardwork/Stairs/Walk up hill Past Surgical History Surgical History (Updated 07/30/22 @ 14:29 by Razia Gonzalez DO) H/O hysterectomy with oophorectomy H/O lumpectomy History of lymph node dissection of axilla History of meniscectomy of left knee History of sinus surgery Past Anesthesia History No Hx of Anesthesia Complications and No Family Hx of Anesthesia Complications History of PONV No Hx of PONV and No Hx of Motion Sickness Social History Smoking Status: Never smoker Hx Alcohol Use: No Hx Substance Use: No substance use type: does not use Physical Exam Vital Signs Last Vital Signs Temp 36.4 C L 07/30/22 07:22 Pulse 84 07/30/22 07:22 Resp 16 07/30/22 07:22 BP 104/74 07/30/22 07:22 Pulse Ox 92 07/30/22 07:22 O2 Del Method 07/30/22 07:22 Constitutional + obese ENMT Mouth: no TMJ abnormality Thyromental Distance: > or= 3.5 Finger Breadths Mallampati Class: II Neck normal visual inspection and trachea midline; neck extension not limited Respiratory normal respiratory effort Auscultation: lungs clear to auscultation bilaterally Cardiovascular Rate/Rhythm: regular rate and regular rhythm Heart Sounds: no murmur Musculoskeletal Spine: normal cervical ROM Extremities: full ROM of extremities Skin + lesion (Scalpx3) Neurologic moves all extremities Psychiatric Orientation: alert and oriented x 3 Testing Laboratory Results 07/30/22 06:40 07/30/22 06:40 Hemoglobin A1c 6.4 % (4.5-5.6) H 07/29/22 05:28 07/28/22 23:12 Aerobic Blood Culture - Preliminary Blood No growth in Aerobic bottle after 24 hours. Anaerobic Blood Culture - Preliminary No growth in Anaerobic bottle after 24 hours. 07/28/22 23:04 Aerobic Blood Culture - Preliminary Blood No growth in Aerobic bottle after 24 hours. Anaerobic Blood Culture - Preliminary No growth in Anaerobic bottle after 24 hours. 07/30/22 07/30/22 12:13 08:07 POC Glucose 143 H 104 H Electrocardiogram Date: 11/19/21 Findings: + NSR @ (78), + NSST changes and + poor R wave progression Chest X-Ray Date: 11/19/21 Findings: + NAD
[2022-07-30] MEDS ORDERED: oxyCODONE HCL IR 5 MG TAB (IMMEDIATE RELEASE) PO PRN (13:09)
[2022-07-30] MEDS: LANTUS PER UNIT CHARGE SQ SCH (21:47)
[2022-07-30] MEDS ORDERED: LANTUS PER UNIT CHARGE SQ ONE (21:49)
[2022-07-31] MEDS: AZTREONAM 1,000 MG in DEXTROSE 5% 100 ML IV SCH ×3 (05:26→20:16)
[2022-07-31] MEDS: LEVOTHYROXINE SODIUM 150 MCG TABLET PO SCH (05:27)
[2022-07-31] MEDS ORDERED: BUPIVACAINE/EPINEPHRINE 0.5% MPF 1:200,000 10 ML VIAL ONE (06:53)
[2022-07-31] MEDS ORDERED: fentaNYL citrate 100 MCG/2 ML VIAL ONE (07:02)
[2022-07-31] MEDS ORDERED: ONDANSETRON INJ 2 MG/ML 2 ML VIAL ONE (07:02)
[2022-07-31] MEDS ORDERED: MIDAZOLAM HCL 1 MG/ML 2ML VIAL ONE (07:02)
[2022-07-31] MEDS ORDERED: DEXAMETHASONE SOD INJ 4 MG/ML VIAL ONE (07:02)
[2022-07-31] MEDS ORDERED: PROPOFOL IV EMULSION 10 MG/ML 20 ML VIAL IV ONE (07:02)
[2022-07-31] MEDS ORDERED: LIDOCAINE 2% MPF LOCAL 5 ML VIAL INFIL ONE (07:02)
--- NOTE | 2022-07-31 07:06 | History & Physical Bridge Note ---
Date of Service July 31, 2022 History & Physical Bridge Note I have examined the patient, reviewed the History & Physical and in the interval since the performance of the History & Physical I have noted the following changes of clinical significance: no changes noted
[2022-07-31] MEDS ORDERED: ATROPINE SULFATE 0.1 MG/ML 10ML SYR IV PRN (07:31)
[2022-07-31] MEDS ORDERED: ePHEDrine sulfate 50 MG/ML AMP IV PRN (07:31)
[2022-07-31] MEDS ORDERED: HYDROmorphone INJ 1 MG/ML SYRINGE IV PRN (07:31)
[2022-07-31] MEDS ORDERED: ONDANSETRON INJ 2 MG/ML 2 ML VIAL IV PRN (07:31)
[2022-07-31] MEDS ORDERED: MEPERIDINE HCL 25 MG/ML CARP/VIAL IV PRN (07:31)
[2022-07-31 07:54] LABS: Creatinine Clr Calc Pharmacy 69.9 ml/min; Est GFR (African American) 98.1 ml/min; Est GFR (Non-African American) 84.6 ml/min
[2022-07-31] MEDS ORDERED: BUPIVACAINE/EPINEPHRINE 0.25% 1:200,000 30 ML VIAL ONE ×2 (08:05)
[2022-07-31] MEDS ORDERED: PHENYLEPHRINE 100MCG/ML 5ML SYR ONE (08:16)
--- NOTE | 2022-07-31 08:36 | Post Operative Brief Note ---
Immediate Post Op Note v1 Date of Surgery July 31, 2022 Pre & Post Diagnosis Operation Date: 07/31/22 07:30 <No data on this case meets the specified criteria> I identified the patient and participated in the time-out.: Yes Procedure Operation Date: 07/31/22 07:30 <No data on this case meets the specified criteria> Surgeon Da Ching MD [employer] none Estimated Blood Loss 5 Findings Consistent with Post-Op Diagnosis
[2022-07-31] MEDS: fentaNYL citrate 100 MCG/2 ML VIAL IV PRN ×2 (09:10→09:15)
--- NOTE | 2022-07-31 09:18 | Anesthesiology Progress Note ---
Date of Service July 31, 2022 Anesthesia Post Procedure Vital Signs Vital Signs: Temp Pulse Pulse Pulse Resp BP Pulse Ox 07/31/22 09:15 36.6 C 74 12 120/79 97 07/31/22 09:05 80 12 140/91 100 07/31/22 08:55 81 16 132/84 100 07/31/22 08:46 36.0 C L 85 16 143/90 H 100 07/30/22 21:57 36.8 C 76 16 138/72 96 07/30/22 15:51 36.6 C 81 16 95/66 L 93 O2 Del Method O2 Flow Rate 07/31/22 09:15 Nasal Cannula 2 07/31/22 09:05 Oxymask 4 07/31/22 08:55 Oxymask 4 07/31/22 08:46 Oxymask 6 07/30/22 21:57 Room Air 07/30/22 15:51 Room Air Pain Intensity Head: Pain Intensity: 6 Transfer of Care Handoff Completed per policy Notes Mental Status: alert / awake / arousable Patient Amnestic to Procedure: Yes Nausea / Vomiting: adequately controlled Pain: adequately controlled Airway Patency, RR, SpO2: stable & adequate BP & HR: stable & adequate Hydration State: stable & adequate Anesthetic Complications: no major complications apparent and Pt Satisfied with anesthetic care
--- NOTE | 2022-07-31 09:32 | Operative Report (OR) ---
DATE OF SURGERY: 07/31/2022 PREOPERATIVE DIAGNOSIS: Scalp abscesses. POSTOPERATIVE DIAGNOSIS: Scalp abscesses. PROCEDURES PERFORMED: I and D of scalp abscesses, one right-sided and second one posterior. SURGEON: Da Ching MD TRIAGE SPECIALIST: None. ANESTHESIA: General with 0.5% Marcaine with epinephrine local. ESTIMATED BLOOD LOSS: 5 mL. INDICATION FOR PROCEDURE: This is a 67-year-old female with 2 abscesses in her scalp. They are caus ing significant discomfort. We are planning on I and D'ing these along with sending biopsy of the ti ssue. DRAINS: None. COMPLICATIONS: None. PATHOLOGIC SPECIMEN: Portion of abscess skin for pathologic evaluation. DESCRIPTION OF PROCEDURE: The patient was taken to the OR and underwent excellent general anesthesia . She was placed in the left lateral decubitus position. Her scalp was prepped and draped in normal sterile fashion. Attention was first turned to the right-sided lesion, which was opened and an joselyn ptical skin biopsy was sent for pathologic evaluation. The cavity was opened widely. A finger probe d and all the infection was drained. This was then irrigated out. The larger abscess posteriorly wa s also opened widely. A lots of purulent material was seen here. This was cultured. This was finge r probed. All the loculations were opened up. Both were then irrigated out once again with minimal b leeding. They were packed with iodoform gauze and a sterile dressing was applied. Job ID: [id number]
[2022-07-31] MEDS ORDERED: HYDROmorphone INJ 0.5 MG/0.5 ML SYR IV STA (10:07)
[2022-07-31] MEDS: ASPIRIN 81 MG ECTAB PO SCH (10:14)
[2022-07-31] MEDS: PANTOprazole 40 MG TAB PO SCH (10:14)
[2022-07-31] MEDS: LOSARTAN POTASSIUM 50 MG TAB PO SCH (10:14)
[2022-07-31] MEDS: ADVANCED PROBIOTIC 1250 MG CAPSULE PO SCH (10:14)
[2022-07-31] MEDS: INSULIN ASPART PER UNIT SC SCH ×4 (10:31→20:49)
[2022-07-31] MEDS ORDERED: POLYETHYLENE (MIRALAX) 17 GM PACK ONE (10:42)
--- NOTE | 2022-07-31 11:02 | Hospitalist Progress Note ---
Date of Service July 31, 2022 Assessment & Plan (1) Abscess or cellulitis of scalp: Plan: - Concern that this may be fungal (kerion) - Failed Bactrim DS and topical steroids as outpatient - Placed empirically on IV abx including Vanco and Aztreonam (d/t multiple abx allergies) - General surgery as well as dermatology consulted, appreciate assistance - GS performed I&D, culture and biopsy of scalp abscess/lesions. Results of course are pending - May require 6-week course of antifungals --> Terbinafine or alternative - Give one time dose of IV Dilaudid 0.5mg x1 now and then resume PO pain control w/ OxyIR (2) Migraines: Plan: - Uses OTC Excedrin Migraine PRN (3) Depression: Plan: - On no specific meds for this (4) Hypothyroidism: Plan: - Continue Synthroid (5) Diabetes mellitus type 2, noninsulin dependent: Plan: - Continue Levemir and log - Accuchecks AC and HS - CC diet (6) GERD (gastroesophageal reflux disease): Plan: - PPI (7) Hypertension: Plan: - Well controlled on Losartan Plan Above plan d/w Dr. Hill, continue abx, await culture/bx results. Admission and Anticipated Discharge Date Admission Date: July 29, 2022 Subjective Patient was seen on daily rounds this morning. She is just back from the OR after undergoing I&D of scalp abscesses. Current and only complaint at this time is pain and RN requested one time dose of IV pain med. Pt denies cp, dyspnea, n/v/d, f/c. Review of Systems Review of Systems: All systems reviewed and are unremarkable except as noted in HPI and below. Denies fever, chills, fatigue, headache, nasal congestion, sore throat, cough, chest pain, shortness of breath, palpitations, orthopnea, PND, abdominal pain, n/v/d, constipation, dysuria, hematuria, frequency, back pain, joint pain or swelling, easy bruising or bleeding. Physical Exam Physical Exam: GENERAL: 67 yo Well-developed, well-nourished WF. NAD. LUNGS: Clear to auscultation bilaterally. No W/R/R. CARDIOVASCULAR: Regular rate and rhythm. ABDOMEN: Soft, non-tender and non-distended. BS normoactive x 4 quad. EXTREMITIES: No edema. Non-tender. Peripheral pulses +2/4. NEUROLOGIC: A&O x3. PSYCHIATRIC: Cooperative. Appropriate mood and affect. SKIN: Warm, dry, intact. Scalp lesions have been I&D'd this AM and dressing in place. Results & Data Results & Data ([facility]) Vital Signs (Past 12 Hours) Vital Signs Temp Pulse Pulse Resp BP Pulse Ox O2 Del Method 07/31/22 10:46 36.2 C L 76 16 109/74 95 Room Air 07/31/22 10:29 36.4 C L 86 16 104/70 97 Nasal Cannula 07/31/22 09:48 36.3 C L 72 16 121/76 99 Nasal Cannula 07/31/22 09:35 74 16 121/83 97 Nasal Cannula 07/31/22 09:25 75 12 123/80 97 Nasal Cannula 07/31/22 09:15 36.6 C 74 12 120/79 97 Nasal Cannula 07/31/22 09:05 80 12 140/91 100 Oxymask 07/31/22 08:55 81 16 132/84 100 Oxymask 07/31/22 08:46 36.0 C L 85 16 143/90 H 100 Oxymask O2 Flow Rate 07/31/22 10:46 07/31/22 10:29 2 07/31/22 09:48 2 07/31/22 09:35 2 07/31/22 09:25 2 07/31/22 09:15 2 07/31/22 09:05 4 07/31/22 08:55 4 07/31/22 08:46 6 PG Care Time/CCT Total # of Minutes Spent Total Time Spent with Patient: Total time spent is greater than 50% in coordination of care (as documented) at patient's floor/unit and/or counseling patient: Coding Level of Care Code 19198 Subseq Hosp Care Lvl 2 Diagnoses Abscess or cellulitis of scalp L03.811 Migraines G43.909 Depression F32.9 Hypothyroidism E03.9 Diabetes mellitus type 2, noninsulin dependent E11.9 GERD (gastroesophageal reflux disease) K21.9 Hypertension I10 Hypertension type: primary hypertension (1) Hypertension Hypertension type: primary hypertension Qualified Code(s): I10 - Essential (primary) hypertension
[2022-07-31] MEDS: oxyCODONE HCL IR 5 MG TAB (IMMEDIATE RELEASE) PO PRN ×3 (11:53→21:24)
[2022-07-31] MEDS ORDERED: VANCOMYCIN HCL 1,250 MG in SODIUM CHLORIDE 0.9% 250 ML IV SCH (12:00)
--- NOTE | 2022-07-31 13:36 | Pharmacy Report ---
Pharmacy Vanc AUC Short Note - Date of Service July 31, 2022 - Assessment & Plan Assessment 67 year old F receiving vancomycin and aztreonam for treatment of scalp abscess (failed Bactrim PO X 3 days as outpatient). Pertinent microbiologic data includes: blood cultures are negative, scalp cultures pending Day # 3 of antimicrobial therapy. Plan Vancomycin * AUC/MISHA is the preferred PK/PD target for vancomycin * AUC guided dosing is effective and associated with decreased risk of nephrotoxicity compared to traditional trough targets * Random vancomycin level this morning came back at ~11.6 mcg/ml - this is associated with AUC/MISHA <400 - therefore will increase dosing to 1250 mg iv q 12 hrs. * This dosing is estimated to achieve a trough level of ~15 and achieve target AUC/MISHA of 400-600 mg/L.hr and may be associated with a 11 % risk of nephrotoxicity * Will start new dosing this evening. Will consider repeating level in next 1-2 days if continued Pharmacy will continue to follow and will adjust dose/frequency as necessary. Thank you.
[2022-07-31] MEDS ORDERED: POLYETHYLENE (MIRALAX) 17 GM PACK PO PRN (14:46)
[2022-07-31] MEDS: VANCOMYCIN HCL 1,250 MG in SODIUM CHLORIDE 0.9% 250 ML IV SCH (21:20)
[2022-07-31] MEDS: LANTUS PER UNIT CHARGE SQ SCH (21:28)
[2022-08-01] MEDS: AZTREONAM 1,000 MG in DEXTROSE 5% 100 ML IV SCH ×2 (04:35→13:31)
[2022-08-01] MEDS: LEVOTHYROXINE SODIUM 150 MCG TABLET PO SCH (05:28)
[2022-08-01 07:15] LABS: Creatinine Clr Calc Pharmacy 67.2 ml/min; Est GFR (African American) 93.4 ml/min; Est GFR (Non-African American) 80.6 ml/min
[2022-08-01] MEDS: ADVANCED PROBIOTIC 1250 MG CAPSULE PO SCH (08:53)
[2022-08-01] MEDS: PANTOprazole 40 MG TAB PO SCH (08:53)
[2022-08-01] MEDS: LOSARTAN POTASSIUM 50 MG TAB PO SCH (08:54)
[2022-08-01] MEDS: ASPIRIN 81 MG ECTAB PO SCH (08:54)
[2022-08-01] MEDS: INSULIN ASPART PER UNIT SC SCH ×2 (08:57→12:42)
[2022-08-01] MEDS: oxyCODONE HCL IR 5 MG TAB (IMMEDIATE RELEASE) PO PRN ×2 (09:02→13:51)
[2022-08-01] MEDS: VANCOMYCIN HCL 1,250 MG in SODIUM CHLORIDE 0.9% 250 ML IV SCH (09:03)
--- NOTE | 2022-08-01 11:53 | Surgery Progress Note ---
Date of Service August 01, 2022 Assessment & Plan (1) Abscess or cellulitis of scalp: Plan: POD # 1 s/p I&D of scalp abscess x 2 and biopsy -afebrile -moderate postop pain, controlled with pain meds Plan: Going to need to remove packing today with some saline and inspect wounds may or may not need packing replaced and then wound care follow-up continue IV abx continue pain managment will consult wound care to see about wound recommendations and dressings. 4:[address] Hernandez Nursing was able to change packing and change wound dressings. Patient being discharged home today with oral bactrim. Has follow-up with dermatology on Monday morning. Follow up with Dr. Mosquera in 1-2 weeks pending dermatology follow-up and recommendations Admission and Anticipated Discharge Date Admission Date: July 29, 2022 Subjective feeling slightly better today but still having moderate pain on the scalp, very sore on the back of the scalp no fevers overnight tolerating diet no n,v Physical Exam Constitutional: WD/WN, vitals as above no acute distress and not ill appearing HEAD: There are two wounds with packing present. Dry blood on the scalp and hair. Tender to palpation surrounding the posterior scalp wound site. Respiratory: normal respiratory effort; no respiratory distress Skin: no rashes, warm and dry Psychiatric: Orientation: alert and oriented x 3 Results & Data ([facility]) Vital Signs (Past 12 Hours) Vital Signs Temp Pulse Pulse Resp BP Pulse Ox O2 Del Method 08/01/22 07:08 36.8 C 79 18 105/69 96 Room Air 08/01/22 04:42 36.8 C 78 18 108/68 96 Room Air 08/01/22 03:26 36.9 C 75 16 96/62 L 94 Room Air Laboratory Results 08/01/22 08/01/22 07/31/22 Range/Units 08:06 06:35 20:37 Creatinine 0.76 (0.6-1.2) mg/dl Est Cr Clr Drug Dosing 67.2 ml/min Est GFR ( Amer) 93.4 ml/min Est GFR (Non-Af Amer) 80.6 ml/min POC Glucose 106 H 101 H (70-99) mg/dl 07/31/22 07/31/22 Range/Units 16:47 11:51 Creatinine (0.6-1.2) mg/dl Est Cr Clr Drug Dosing ml/min Est GFR ( Amer) ml/min Est GFR (Non-Af Amer) ml/min POC Glucose 105 H 110 H (70-99) mg/dl Microbiology 07/31/22 Unknown Gram Stain - Final Scalp Aerobic and Anaerobic Culture - Preliminary Staphylococcus species
--- NOTE | 2022-08-01 12:44 | Discharge Summary ---
Date of Service August 01, 2022 Admission HPI Per Admitting Provider The patient is a 67-year-old female with a past medical history including breast cancer, migraines, depression, hypothyroidism, diabetes mellitus, major depressive disorder recurrent severe without psychotic features. She presents to the emergency department with failure of outpatient treatment for a painful rash on multiple areas of her scalp. She denies any recent exposures to ticks or other insects. She denies any other sick exposures. Principal Diagnosis Scalp abscesses with superimposed cellulitis s/p I&D Discharge Exam GENERAL: 67 yo Well-developed, well-nourished WF. NAD. LUNGS: Clear to auscultation bilaterally. No W/R/R. CARDIOVASCULAR: Regular rate and rhythm. ABDOMEN: Soft, non-tender and non-distended. BS normoactive x 4 quad. EXTREMITIES: No edema. Non-tender. Peripheral pulses +2/4. NEUROLOGIC: A&O x3. PSYCHIATRIC: Cooperative. Appropriate mood and affect. SKIN: Warm, dry, intact. Occiput scalp abscess decreased in size, iodoform dressing tail noted. No active drainage or bleeding. Temporal abscess with dried blood, no active bleeding or drainage. Mildly tender to manipulation. Discharge Data Allergies Allergy/AdvReac Type Severity Reaction Status Date / Time bee venom protein (honey bee) Allergy Severe Anaphylaxis Verified 07/28/22 22:48 penicillin V Allergy Severe Anaphylaxis Verified 07/28/22 22:48 tetanus toxoid, adsorbed Allergy Severe Anaphylaxis Verified 07/28/22 22:48 adhesive Allergy Intermediate PLASTIC Verified 07/28/22 22:48 TAPE--BLISTERED SKIN sumatriptan Allergy Intermediate chest pain Verified 07/28/22 22:48 cephalexin AdvReac Intermediate ABD Verified 07/28/22 22:48 CRAMPING, DIARRHEA morphine AdvReac Intermediate nausea, Verified 07/28/22 22:48 vomiting. Consultations 07/29/22 00:44 ED Decision to Admit Stat 07/29/22 18:52 Consult General Surgery Routine Procedures Performed Operation Date: 07/31/22 07:30 Actual Procedures p Excision and Drainage of Scalp Abscesses with Biopsy - Da Ching MD Hospital Course (1) Abscess or cellulitis of scalp: - Initially seen by urgent care started on Clotrimazole + Betamethasone but areas worsened - Re-evaluated and placed on Bactrim DS on 07/26, only received total of 3 doses prior to coming to the hospital - Placed empirically on IV abx including Vanco and Aztreonam (d/t multiple abx allergies) - General surgery as well as dermatology consulted, appreciate assistance - GS performed I&D, culture and biopsy of scalp abscess/lesions. Prelim cultures reveal growth of staph, final results pending - Biopsy still pending - Discussed case with derm, Dr. Del Castillo, no need to initiate antifungals at this time. He agreed with resumption of Bactrim and will see in f/u in office on 08/03 @ 0945 - Will remove packing, irrigate wound with saline, and repack. Place nonstick dressing and cover with gauze. Leave this in place until seen by derm. - No showering or washing hair. (2) Migraines: - Uses OTC Excedrin Migraine PRN (3) Depression: - On no specific meds for this (4) Hypothyroidism: - Continue Synthroid (5) Diabetes mellitus type 2, noninsulin dependent: - Resume home regimen and BG monitoring (6) GERD (gastroesophageal reflux disease): - PPI (7) Hypertension: - Well controlled on Losartan Plan Patient is medically and hemodynamically stable for discharge home today with outpatient f/u with pcp as well as follow up with dermatology as arranged for 08/03. Plan d/w Dr. Hill who has also seen and evaluated this patient prior to discharge and agrees with aforementioned. Total Time Total Time Spent Total Time Spent (In Minutes): >30 minutes Discharge Plan Discharge Items Patient Disposition: Home - Self-Care Reason For Visit: SCALP CELLULITIS, FAILURE OF OUTPATIENT TREATMENT Discharge Diagnosis: scalp abscesses Condition on Discharge: Good Activity: Resume your previous activity Non-emergency contact: Primary Care Provider and Specialist Call non-emergency contact if: you have any medication questions Follow-up/Referrals: Ara Erwin [Primary Care Provider] - Diet: Carb Consistent or DM2 Addtl Attending Provider Instructions: You were hospitalized due to abscesses on your scalp which are pockets of pus under the skin that required drainage. The drainage was sent to the lab for testing, bacteria was isolated, the final results are pending. However, based on the preliminary report, you will need to resume the Bactrim that you were prescribed prior to coming to the hospital. Please resume taking that this evening (08/01) before bed. You currently have some packing in the one abscess on the top of your scalp. This is to allow for healing from the inside out as if it heals from the outside in, it will likely fill back up with pus. Your dressing has been changed prior to discharge today (08/01). You can leave the dressing in place until you follow up with Dr. eDl Castillo, the instrumentation and controls designer, on MondayAugust 03 at 9:45am. His office is located at [address] [facility], [address]. DO NOT use the Clotrimazole Betamethasone cream that you were given by the urgent care center on these affected areas. Do not wash your hair or shower until seen in follow up. You can bathe and wash your face, but would not wash your hair until you are instructed otherwise. You are being prescribed some pain medication to take as needed for discomfort. This medication can impair your ability to react while driving or operating machinery. Please DO NOT take this medication and attempt to drive. For mild pain you can take Tylenol which is over the counter. It is advised that you follow up with your primary care provider within 1 week of discharge. If you have any questions or concerns following your discharge, feel free to contact the nonemergency number listed on your discharge paperwork. In the event of a medical emergency, please call 911. Pending Studies at Discharge: Yes Studies:: Final wound culture and biopsy results Stand-Alone Forms: My [facility], Smoking Cessation Medications and DC Order Prescriptions: New sulfamethoxazole-trimethoprim [Bactrim DS] 800-160 mg tablet 1 tab PO BID Qty: 20 0RF oxycodone 5 mg tablet 5 mg PO Q6H PRN (Reason: pain, severe) Qty: 10 0RF Continued aspirin [Alexis Low Dose Aspirin] 81 mg tablet,delayed release (DR/EC) 81 mg PO DAILY pantoprazole 20 mg tablet,delayed release (DR/EC) 20 mg PO DAILY levothyroxine [Synthroid] 150 mcg tablet See Rx Instructions .ROUTE .COMPLEX Rx Instructions: 150 mcg orally ;TAKES 150 MCG DAILY, THEN ON THURSDAYS TAKES 225 MCG. losartan 25 mg tablet 50 mg PO DAILY Levemir FlexTouch U-100 Insuln 100 unit/mL (3 mL) insulin pen 25 unit SUBCUT QPM Ozempic 0.25 mg or 0.5 mg(2 mg/1.5 mL) pen injector 1 mg SUBCUT WK Rx Instructions: TAKES ON TUESDAYS. Excedrin Migraine 250-250-65 mg Tablet 1 tab PO DIRECTED PRN (Reason: Migraine Headache) Digestive Probiotic 3 billion cell Capsule 1 cap PO DAILY Discharge Orders: Discharge Order (Routine); Ordered 08/01/22 Ordered By: Anya Ruiz/Other Patient Handouts: Managing Type 2 Diabetes Admission Data Admit Date/Time: 07/29/22 01:29 Attending Provider: Vaughn Hill Admit Provider: Tommy Massey Primary Care Provider: Ara Erwin Other Providers: Tommy Massey ; Da Ching Coding Level of Care Code D/C DAY MANAGEMENT >30 MINS Diagnoses Abscess or cellulitis of scalp L03.811 Migraines G43.909 Depression F32.9 Hypothyroidism E03.9 Diabetes mellitus type 2, noninsulin dependent E11.9 GERD (gastroesophageal reflux disease) K21.9 Hypertension I10 Hypertension type: primary hypertension
[2022-08-02] MEDS ORDERED: VANCOMYCIN LEVEL ONE (09:30)
[2022-08-04] MEDS ORDERED: LEVOTHYROXINE SODIUM 112 MCG TABLET PO SCH (06:30)
== END 2022-08-01 16:11 | disposition home or self-care (01) | DRG 603 ==
LOC: ED 21:23 → SUATTDRO 07-29 01:29 → 3E 07-29 01:29